=== PATIENT | male | born 1960 | race Caucasian/White ===

== ENCOUNTER 2020-03-19 08:20 | Outpatient (REF) | payer OTHER, SELFPAY | END 2020-03-19 08:21 | disposition home or self-care (01) | LOC: HO.LAB 08:20 | PROVIDERS: Visit Provider Physician Assistant | DX: Z13.89 Encounter for screening for other disorder (principal) ==

== ENCOUNTER 2020-03-21 07:32 | Outpatient (REF) | payer OTHER, SELFPAY ==
[2020-03-21 08:36] LABS: Estimated Average Glucose 126 mg/dL
[2020-03-21 09:07] LABS: Alanine Aminotransferase 30 U/L (0-40); Albumin Level 4.3 g/dL (3.5-5.0); Alkaline Phosphatase 50 U/L (39-117); Anion Gap 11 (12-20); Aspartate Amino Transferase 19 U/L (5-37); Bilirubin Total 0.9 mg/dL (0.0-1.0); Blood Urea Nitrogen 24 mg/dL (9-16); Calcium 8.8 mg/dL (8.4-10.2); Carbon Dioxide 30 mmol/L (22-29); Chloride 105 mmol/L (96-108); Cholesterol 148 mg/dL; Estimated Glomerular Filt Rate > 60; Glucose Fasting 130 mg/dL (60-99); HDL Cholesterol 55 mg/dL; LDL Cholesterol Calculated 75 mg/dl; Potassium 4.5 mmol/l (3.3-5.1); Sodium 141 mmol/L (135-145); Total Protein 6.9 g/dL (6.5-8.0); Triglycerides 91 mg/dL
[2020-03-21 09:28] LABS: Prostate Specific Antigen Scr 1.54 ng/mL (<0.05-4.0)
== END 2020-03-21 07:33 | disposition home or self-care (01) ==
LOC: HO.LAB 07:32
PROVIDERS: PCP Physician Assistant; Visit Provider Physician Assistant
DX: E78.5 Hyperlipidemia, unspecified (principal); R73.09 Other abnormal glucose; Z12.5 Encounter for screening for malignant neoplasm of prostate
CPT/HCPCS: 80053; 80061; 83036; 84153

== ENCOUNTER → 2020-04-16 13:50 | Outpatient (BNVA) | payer OTHER, SELFPAY | PROVIDERS: PCP Physician Assistant; Visit Provider Physician Assistant | DX: Z12.11 Encounter for screening for malignant neoplasm of colon (principal) | CPT/HCPCS: Q3014 ==

== ENCOUNTER 2020-05-29 07:21 | Day surgery (SDC) | payer OTHER, SELFPAY ==
[2020-05-22 20:36] VITALS: BMI 29.0
--- NOTE | 2020-05-28 09:20 | HO.ANESPROP2 ---
Documented by User: Jaja Velasco 05/28/20 09:21 HPI - Anesthesia Eval Consult details Narrative: 59yo M for Colonoscopy [facility] Active Problems Active Problems: All Active Problems (Updated 05/22/20 @ 20:35 by Rachel Powers RN) Impaired glucose metabolism (Acute) Hyperlipidemia (Acute) Family history of colon cancer (Acute) Encounter for screening colonoscopy (Acute) Past Medical History Medical History Arthritis Elevated cholesterol Hydrocele Impaired glucose metabolism Neck pain Tubular adenoma of colon Family History Family History Father No problems noted. Mother Hypertension Brother In good health Son In good health Daughter In good health Surgical History Surgical History H/O arthroscopic knee surgery History of colonoscopy History of tonsillectomy No pertinent past surgical history Social History Social History Smoking Status: Never smoker Second Hand Smoke Exposure: No Use of substances other than those prescribed or required for medical reasons: No Advance Directives: No Advance Directives Information Provided: No Advance Directives on File: No Recently lost weight without trying: No Meds Allergies Allergy/AdvReac Type Severity Reaction Status Date / Time No Known Allergies Allergy Verified 05/23/20 10:10 Exam Exam Date and Time: May 28, 2020 0920 Height,Weight and Vital Signs: Height 5 ft 7 in Weight 83.915 kg Assessment and Plan Assessment Anesthesia Assessment: Chart Reviewed Documented by User: Reyna Rivers 05/29/20 09:09 [facility] Past Medical History Medical History Arthritis Elevated cholesterol Hydrocele Impaired glucose metabolism Neck pain Tubular adenoma of colon Family History Family History Father No problems noted. Mother Hypertension Brother In good health Son In good health Daughter In good health Surgical History Surgical History H/O arthroscopic knee surgery History of colonoscopy History of tonsillectomy No pertinent past surgical history Social History Social History Smoking Status: Never smoker Second Hand Smoke Exposure: No Use of substances other than those prescribed or required for medical reasons: No Advance Directives: No Advance Directives Information Provided: No Advance Directives on File: No Recently lost weight without trying: No Meds Allergies Allergy/AdvReac Type Severity Reaction Status Date / Time No Known Allergies Allergy Verified 05/23/20 10:10 Exam Airway Mallampati Class: I TM Dist: >3cm Neck ROM: Full Heart: RRR Lungs: CTA
[2020-05-29 08:04] VITALS: BP 162/96; PULSE 73; RESP 16; TEMP 36.8
[2020-05-29 08:16] LABS: Glucose, Whole Blood 110 mg/dL (60-115)
[2020-05-29] MEDS: Lactated Ringers 1,000 ML 100 ML IVCONT (08:29)
--- NOTE | 2020-05-29 08:45 | MHC.SHP ---
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 5 YEARS AGO) Allergies: Allergies Allergy/AdvReac Type Severity Reaction Status Date / Time No Known Allergies Allergy Verified 05/23/20 10:10 Review of Systems Sugical H&P ROS: Negative: Constitution, Cardiovascular, Neurological, Gastrointestinal and Musculoskeletal and Yes, Specify: Endocrine (ON METFORMIN) Exam Surgical H&P Exam: Normal: HEENT, Normal: Heart, Normal: Lungs, Normal: Extremities, Normal: Abdomen and Normal: Skin Plan Diagnosis/Plan: Unchanged I have reviewed the history and physical and performed a pertinent physical examination on my patient. No changes have occurred unless specified.YES
[2020-05-29 09:41] VITALS: BP 105/65; PULSE 68; RESP 16; TEMP 36.8; O2SAT 96
--- NOTE | 2020-05-29 09:49 | HO.POSTANES ---
Post Anesthesia Evaluation Post Anesthesia Evaluation Vital Signs: Vital Signs Temp Pulse Resp BP Pulse Ox 05/29/20 09:41 98.3 F 68 16 105/65 96 05/29/20 08:04 98.3 F 73 16 162/96 H Anesthesia: Monitored Mental Status: Awake Pain Control: Satisfactory Nausea/Vomiting: None Hydration: Adequate Anesthesia-Related Issues: No Anes. Related Issues
[2020-05-29 09:55] VITALS: BP 139/82; PULSE 67; RESP 16; O2SAT 97
--- NOTE | 2020-05-29 09:58 | PM.OP ---
Brief Operative Note Date of Service: 05/29/20 Pre-op diagnosis: Personal hx of tubular adenoma, Family hx of colon cancer Post-op diagnosis: other (Colonic polyps, as above) Procedure: Colonoscopy with excisional polypectomy x2 Implants: no Surgeon: Marcelina Manning MD Anesthesia: MAC (MD Alex) Estimated blood loss (mL): 10 Pathology: other (cecal polyp, rectal polyp) Condition: stable Disposition: PACU
--- NOTE | 2020-05-29 10:03 | W.PM.OPN ---
Operative Note Operative Note Date of Service: 05/29/20 Narrative: Date of Service: 05/29/20 Pre-op diagnosis: Personal hx of tubular adenoma, Family hx of colon cancer Post-op diagnosis: other (Colonic polyps, as above) Procedure: Colonoscopy with excisional polypectomy x2 Implants: no Surgeon: Marcelina Manning MD Anesthesia: MAC (MD Alex) FINDINGS: SHON normal prostate scope easily advanced through Sigmoid, descending, transverse colon. Continued movement in to asecending colon down into the cecum--Diminutive Polyp removed in cecum. At one point a good retroflex view of the ascending colon was achieved. (Mucosa was clear.) Prep good Slow rotational views on withdrawing scope a second polyp was removed in the rectum. ARV was clear. Estimated blood loss (mL): 10 Pathology: other (cecal polyp, rectal polyp) Condition: stable Disposition: PAC PATHOLOGY: CECAL TUBULAR ADENOMA, RECTAL POLYP WAS HYPERPLASTIC. PLAN: REPEAT HIGH RISK SCREENING WILL CONTINUE @ 5 YEAR INTERVAL.
--- NOTE | 2020-05-29 12:00 | HO.POSTANES ---
Post Anesthesia Evaluation Post Anesthesia Evaluation Vital Signs: Vital Signs Temp Pulse Resp BP Pulse Ox 05/29/20 09:55 67 16 139/82 97 05/29/20 09:41 98.3 F 68 16 105/65 96 05/29/20 08:04 98.3 F 73 16 162/96 H Anesthesia: Monitored Mental Status: Awake Pain Control: Satisfactory Nausea/Vomiting: None Hydration: Adequate Anesthesia-Related Issues: No Anes. Related Issues
== END 2020-05-29 10:26 | disposition home or self-care (01) ==
PROVIDERS: PCP Physician Assistant; Visit Provider Internal Medicine Gastroenterology
PROC: 0DJD8ZZ Inspection of Lower Intestinal Tract, Via Natural or Artificial Opening Endoscopic (ICD-10-PCS; CPT 45378; principal; 2020-05-29 08:30)
DX: Z12.11 Encounter for screening for malignant neoplasm of colon (principal); Z86.010 Personal history of colon polyps; D12.0 Benign neoplasm of cecum; K62.1 Rectal polyp; K57.30 Diverticulosis of large intestine without perforation or abscess without bleeding; Z80.0 Family history of malignant neoplasm of digestive organs; R73.02 Impaired glucose tolerance (oral); Z79.84 Long term (current) use of oral hypoglycemic drugs
CPT/HCPCS: 45380; 82947; 88305

== ENCOUNTER → 2020-06-05 13:59 | Outpatient (BNVA) | payer OTHER, SELFPAY | PROVIDERS: PCP Physician Assistant; Visit Provider Physician Assistant | DX: D12.6 Benign neoplasm of colon, unspecified (principal) | CPT/HCPCS: Q3014 ==

== ENCOUNTER 2020-09-16 07:57 | Outpatient (REF) | payer OTHER, SELFPAY ==
[2020-09-16 09:23] LABS: Estimated Average Glucose 123 mg/dL; Hemoglobin A1c % 5.9 %
[2020-09-16 09:28] LABS: Alanine Aminotransferase 22 U/L (0-40); Albumin Level 4.2 g/dL (3.5-5.0); Alkaline Phosphatase 46 U/L (39-117); Anion Gap 11 (12-20); Aspartate Amino Transferase 19 U/L (5-37); Blood Urea Nitrogen 25 mg/dL (9-16); Calcium 9.5 mg/dL (8.4-10.2); Carbon Dioxide 29 mmol/L (22-29); Chloride 106 mmol/L (96-108); Cholesterol 137 mg/dL; Estimated Glomerular Filt Rate > 60; Glucose Fasting 122 mg/dL (60-99); HDL Cholesterol 51 mg/dL; LDL Cholesterol Calculated 70 mg/dl; Potassium 4.8 mmol/L (3.3-5.1); Sodium 141 mmol/L (135-145); Total Protein 6.5 g/dL (6.5-8.0); Triglycerides 83 mg/dL
[2020-09-16 09:50] LABS: Prostate Specific Antigen Scr 1.28 ng/mL (<0.05-4.0)
== END 2020-09-16 07:58 | disposition home or self-care (01) ==
LOC: HO.LAB 07:57
PROVIDERS: PCP Physician Assistant; Visit Provider Physician Assistant
DX: Z12.5 Encounter for screening for malignant neoplasm of prostate (principal); E78.5 Hyperlipidemia, unspecified; R73.09 Other abnormal glucose; Z80.0 Family history of malignant neoplasm of digestive organs
CPT/HCPCS: 36415; 80053; 80061; 83036; 84153

== ENCOUNTER → 2020-11-06 10:04 | Outpatient (REF) | payer OTHER, SELFPAY | LOC: HO.SL 10:04 | PROVIDERS: PCP Physician Assistant; Visit Provider Physician Assistant | DX: R06.81 Apnea, not elsewhere classified (principal) | CPT/HCPCS: 95806 ==

== ENCOUNTER 2021-04-27 09:24 | Outpatient (REF) | payer OTHER, SELFPAY ==
[2021-04-27 10:02] LABS: Hematocrit 46.3 % (42.0-52.0); Hemoglobin 15.7 g/dl (14.0-18.0); Mean Corpuscular HGB Conc 33.9 g/dl (31.0-36.0); Mean Corpuscular Hemoglobin 32.4 pg (27.0-33.0); Mean Corpuscular Volume 95.7 fL (80.0-98.0); Mean Platelet Volume 9.8 fL (9.4-12.4); Platelet Count 207 X10*3/uL (160-400); Red Blood Count 4.84 X10*6/uL (4.60-5.80); Red Cell Distribution Width 12.3 % (11.0-16.0); White Blood Count 6.4 X10*3/uL (4.8-10.8)
[2021-04-27 10:09] LABS: Estimated Average Glucose 134 mg/dL; Hemoglobin A1c % 6.3 %
[2021-04-27 10:37] LABS: Alanine Aminotransferase 33 U/L (0-40); Albumin Level 4.3 g/dL (3.5-5.0); Alkaline Phosphatase 45 U/L (39-117); Anion Gap 12 (12-20); Aspartate Amino Transferase 20 U/L (5-37); Bilirubin Total 1.1 mg/dL (0.0-1.0); Blood Urea Nitrogen 27 mg/dL (9-16); Calcium 9.8 mg/dL (8.4-10.2); Carbon Dioxide 30 mmol/L (22-29); Chloride 106 mmol/L (96-108); Cholesterol 148 mg/dL; Estimated Glomerular Filt Rate > 60; Glucose Fasting 122 mg/dL (60-99); HDL Cholesterol 52 mg/dL; LDL Cholesterol Calculated 79 mg/dl; Potassium 5.1 mmol/L (3.3-5.1); Sodium 143 mmol/L (135-145); Total Protein 6.9 g/dL (6.5-8.0); Triglycerides 87 mg/dL
[2021-04-27 10:48] LABS: TSH reflex Free T4 0.83 uIU/mL (0.32-4.0)
== END 2021-04-27 09:25 | disposition home or self-care (01) ==
LOC: HO.LAB 09:24
PROVIDERS: PCP Physician Assistant; Visit Provider Physician Assistant
DX: R73.09 Other abnormal glucose (principal); E78.2 Mixed hyperlipidemia; I10 Essential (primary) hypertension
CPT/HCPCS: 36415; 80053; 80061; 83036; 84443; 85027

== ENCOUNTER 2021-10-22 09:21 | Outpatient (REF) | payer MEDICARE, SELFPAY ==
[2021-10-22 09:57] LABS: Hematocrit 45.5 % (42.0-52.0); Hemoglobin 15.4 g/dl (14.0-18.0); Mean Corpuscular HGB Conc 33.8 g/dl (31.0-36.0); Mean Corpuscular Volume 94.6 fL (80.0-98.0); Mean Platelet Volume 10.1 fL (9.4-12.4); Platelet Count 208 X10*3/uL (160-400); Red Blood Count 4.81 X10*6/uL (4.60-5.80); Red Cell Distribution Width 12.1 % (11.0-16.0); White Blood Count 5.9 X10*3/uL (4.8-10.8)
[2021-10-22 10:04] LABS: Estimated Average Glucose 123 mg/dL; Hemoglobin A1c % 5.9 %
[2021-10-22 10:33] LABS: Alanine Aminotransferase 25 U/L (0-40); Albumin Level 4.2 g/dL (3.5-5.0); Alkaline Phosphatase 47 U/L (39-117); Anion Gap 11 (12-20); Aspartate Amino Transferase 19 U/L (5-37); Bilirubin Total 1.1 mg/dL (0.0-1.0); Blood Urea Nitrogen 21 mg/dL (9-16); Calcium 9.1 mg/dL (8.4-10.2); Carbon Dioxide 29 mmol/L (22-29); Chloride 106 mmol/L (96-108); Cholesterol 162 mg/dL; Estimated Glomerular Filt Rate > 60; Glucose Fasting 122 mg/dL (60-99); HDL Cholesterol 53 mg/dL; LDL Cholesterol Calculated 93 mg/dl; Sodium 141 mmol/L (135-145); Total Protein 6.7 g/dL (6.5-8.0); Triglycerides 83 mg/dL
[2021-10-22 10:56] LABS: Prostate Specific Antigen Scr 1.35 ng/mL (<0.05-4.0); TSH reflex Free T4 1.08 uIU/mL (0.32-4.0)
== END 2021-10-22 09:22 | disposition home or self-care (01) ==
LOC: HO.LAB 09:21
PROVIDERS: PCP Physician Assistant; Visit Provider Physician Assistant
DX: Z12.5 Encounter for screening for malignant neoplasm of prostate (principal); R73.09 Other abnormal glucose; E78.2 Mixed hyperlipidemia
CPT/HCPCS: 36415; 80053; 80061; 83036; 84153; 84443; 85027

== ENCOUNTER 2022-02-04 11:37 | Outpatient (REF) | payer MEDICARE, SELFPAY ==
--- NOTE | 2022-02-04 09:45 | EMG_ITS ---
Left median and ulnar motor and sensory studies were performed. Left radial sensory study was performed, and paraspinal muscles were tested with a needle. IMPRESSION: 1. [id number] left ulnar neuropathy across cubital tunnel. 2. No evidence of median neuropathy or radiculopathy. MD GALINA Massey/ALETA / [id number]
== END 2022-02-04 11:38 | disposition home or self-care (01) ==
LOC: HO.NEURO 11:37
PROVIDERS: PCP Physician Assistant; Visit Provider Physician Assistant
DX: R20.2 Paresthesia of skin (principal)
CPT/HCPCS: 95886; 95909

== ENCOUNTER 2022-04-20 07:21 | Outpatient (REF) | payer MEDICARE, SELFPAY ==
[2022-04-20 07:41] LABS: Hematocrit 44.4 % (42.0-52.0); Hemoglobin 15.2 g/dl (14.0-18.0); Mean Corpuscular HGB Conc 34.2 g/dl (31.0-36.0); Mean Corpuscular Hemoglobin 32.5 pg (27.0-33.0); Mean Corpuscular Volume 94.9 fL (80.0-98.0); Mean Platelet Volume 9.7 fL (9.4-12.4); Platelet Count 218 X10*3/uL (160-400); Red Blood Count 4.68 X10*6/uL (4.60-5.80); Red Cell Distribution Width 11.7 % (11.0-16.0); White Blood Count 6.5 X10*3/uL (4.8-10.8)
[2022-04-20 08:35] LABS: Alanine Aminotransferase 28 U/L (0-40); Albumin Level 4.1 g/dL (3.5-5.0); Alkaline Phosphatase 45 U/L (39-117); Anion Gap 12 (12-20); Aspartate Amino Transferase 21 U/L (5-37); Bilirubin Total 1.2 mg/dL (0.0-1.0); Blood Urea Nitrogen 21 mg/dL (9-16); Carbon Dioxide 27 mmol/L (22-29); Chloride 104 mmol/L (96-108); Cholesterol 143 mg/dL; Estimated Glomerular Filt Rate > 60; Glucose Fasting 120 mg/dL (60-99); HDL Cholesterol 50 mg/dL; LDL Cholesterol Calculated 76 mg/dl; Potassium 4.5 mmol/L (3.3-5.1); Sodium 138 mmol/L (135-145); Total Protein 6.7 g/dL (6.5-8.0); Triglycerides 88 mg/dL
[2022-04-20 08:41] LABS: Estimated Average Glucose 128 mg/dL; Hemoglobin A1c % 6.1 %
[2022-04-20 08:52] LABS: TSH reflex Free T4 1.14 uIU/mL (0.32-4.0)
== END 2022-04-20 07:22 | disposition home or self-care (01) ==
LOC: HO.LAB 07:21
PROVIDERS: PCP Physician Assistant; Visit Provider Physician Assistant
DX: R73.09 Other abnormal glucose (principal); E78.2 Mixed hyperlipidemia; Z13.29 Encounter for screening for other suspected endocrine disorder
CPT/HCPCS: 36415; 80053; 80061; 83036; 84443; 85027

== ENCOUNTER 2022-12-10 08:33 | Outpatient (REF) | payer MEDICARE, SELFPAY ==
[2022-12-10 09:43] LABS: Hematocrit 43.2 % (42.0-52.0); Hemoglobin 14.8 g/dl (14.0-18.0); Mean Corpuscular HGB Conc 34.3 g/dl (31.0-36.0); Mean Corpuscular Hemoglobin 31.8 pg (27.0-33.0); Mean Corpuscular Volume 92.9 fL (80.0-98.0); Mean Platelet Volume 10.2 fL (9.4-12.4); Platelet Count 221 X10*3/uL (160-400); Red Blood Count 4.65 X10*6/uL (4.60-5.80); Red Cell Distribution Width 12.5 % (11.0-16.0); White Blood Count 6.9 X10*3/uL (4.8-10.8)
[2022-12-10 09:47] LABS: Estimated Average Glucose 114 mg/dL; Hemoglobin A1C 148.4884 umol/L; Hemoglobin A1c % 5.6 % (<6.0)
[2022-12-10 10:23] LABS: Alanine Aminotransferase 27 U/L (0-40); Albumin Level 4.2 g/dL (3.5-5.0); Alkaline Phosphatase 45 U/L (39-117); Anion Gap 11 (12-20); Aspartate Amino Transferase 20 U/L (5-37); Bilirubin Total 0.9 mg/dL (0.0-1.0); Blood Urea Nitrogen 22 mg/dL (9-16); Calcium 9.2 mg/dL (8.4-10.2); Carbon Dioxide 27 mmol/L (22-29); Chloride 108 mmol/L (96-108); Cholesterol 152 mg/dL (<200); Estimated Glomerular Filt Rate > 60; Glucose Fasting 114 mg/dL (60-99); HDL Cholesterol 58 mg/dL (>40); LDL Cholesterol Calculated 78 mg/dL (<100); Potassium 4.6 mmol/L (3.3-5.1); Sodium 141 mmol/L (135-145); Total Protein 6.8 g/dL (6.5-8.0); Triglycerides 84 mg/dL (<150)
[2022-12-10 10:31] LABS: Creatinine Urine 160.53 mg/dL; Microalbum/Creatinine Ratio Ur 4.3 ug/mg cr (<30)
== END 2022-12-10 08:34 | disposition home or self-care (01) ==
LOC: HO.LAB 08:33
PROVIDERS: PCP Physician Assistant; Visit Provider Physician Assistant
DX: I10 Essential (primary) hypertension (principal); R73.09 Other abnormal glucose; E78.2 Mixed hyperlipidemia
CPT/HCPCS: 36415; 80053; 80061; 82043; 82570; 83036; 85027

== ENCOUNTER 2022-12-15 10:51 | Outpatient (AMB) | payer MEDICARE, SELFPAY ==
--- NOTE | 2022-12-15 10:56 | A.OFFPC_ITS ---
Vital Signs 12/15/22 10:58 Height 5 ft 7 in Weight 186 lb 6 oz BMI 29.2 BP 120/70 Blood Pressure Location Lt brachial Position Sitting Pulse 66 Pulse Source Pulse Oximeter Pulse Oximetry (%) 97 Oxygen Delivery Method Room Air Intake Visit Reasons: 6M. F/U-HLD, IGM Intake Note: Patient is here to follow up on HLD, IGM. 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 per policy Accompanied by: Self / Same As Patient Allergies valsartan Adverse Reaction (Intermediate, Verified 12/15/22 11:15) throat issue Medication List - Last Reconciled 12/15/22 by Kalpesh Browning PA-C amlodipine 10 mg PO DAILY 90 days atorvastatin 20 mg PO DAILY 90 days fluticasone propionate 50 mcg/actuation (Flonase Allergy Relief) 1 spray intranasal DAILY metformin ER 500 mg PO DAILY Tobacco use date assessed: 12/15/22 Dental Screening Dental Screen Date: 12/15/22 Did you have a dental visit in the last 12 months?: Yes Did you have a dental problem in the last 6 months where you did not have access to dental care?: No Was dental information given to patient?: Patient has dentist HPI 6M. F/U-HLD, IGM HPI Details Osmin is a 62-year-old male here today for follow-up visit ?Patient has a past medical history significant for diabetes, cervical radiculopathy hyperlipidemia, depression. /. Hypertension: Continues on amlodipine 10 mg He reports at home getting normal readings at times. otherwise is reluctant to start blood pressure medication and denies any symptoms of headaches, dizziness, chest discomfort. .. Hyperlipidemia: Continues on statin therapy, does report some muscle aches though the attributes this to a just well. Most recent lipid panel showing excellent control over his total cholesterol and LDL. ? .. ?Impaired glucose metabolism: was recent A1c much improved at 5.6. On metformin 500mg. Continues to decrease his carbs in his diet. Has been much more physically active and has lost a few lb since last office visit ? .. ? Cervical radiculopathy-> :? Continues to have intermittent neck pains which has caused him be on disability. ? He was followed by [facility] and received injections which helped in the past.. Reports he still has mild pain and numbness in his left upper extremity. Has not been taking gabapentin. ? HAs done a MRI- cervical showing hernia disc. [facility] Medical History (Updated 12/15/22 @ 11:26 by Kalpesh Browning PA-C) Allergic rhinitis Family history of colon cancer Essential hypertension Neck pain Arthritis Elevated cholesterol Hydrocele Tubular adenoma of colon Impaired glucose metabolism Surgical History History of colonoscopy History of tonsillectomy H/O arthroscopic knee surgery No pertinent past surgical history Family History Father No problems noted. Mother Hypertension Brother In good health Colon cancer Son In good health Mental health disorder Substance use disorder Daughter In good health Social History Household Members: Significant Other Housing: House Alcohol intake: current Alcohol intake frequency: a few times a week Alcohol type: hard liquor Patient Tobacco Use Status: Never used Tobacco e-Cigarette/Vaping Use: Never Used Second Hand Smoke Exposure: No service: No Current occupational status: disabled Cognitive needs: No Hearing needs: No Vision needs: Yes (glasses) Questionnaire Thrive Questionnaire Date Thrive assessed: 04/29/22 PAIGE-7 AMB Questionnaire PAIGE-7 Date PAIGE - 7 assessed: 04/29/22 Source: Developed by Drs. Elliot Warren, Sujey Lay, Rigo Marie and colleagues, with an educational danay from [employer]. Review of Systems Const Denies headache(s) Eyes Denies loss of vision ENT Denies vertigo, Denies dizziness, Denies headache(s) and Denies sore throat Card Denies chest pain, Denies leg edema and Denies lightheadedness Resp Denies cough, Denies hemoptysis and Denies wheezing GI Denies abdominal pain, Denies melena, Denies constipation, Denies diarrhea and Denies vomiting Denies dysuria, Denies urinary frequency and Denies urinary urgency Musc Denies arthralgias, Denies joint swelling, Denies numbness and Denies tingling Neuro Denies Abnormal speech present, Denies behavioral changes, Denies vertigo, Denies dizziness, Denies headache(s), Denies loss of vision, Denies memory loss, Denies numbness and Denies tingling Psych Denies anxiety, Denies behavioral changes, Denies depression, Denies memory loss and Denies panic attacks Wisam/Lymph Denies easy bleeding and Denies easy bruising Aller/Immun Denies wheezing Physical exam (Primary Care) Vital Signs: Last Vital Signs Pulse 66 12/15/22 10:58 BP 120/70 12/15/22 10:58 Pulse Ox 97 12/15/22 10:58 Oxygen Delivery Method Room Air 12/15/22 10:58 BMI result Body Mass Index 29.2 Tobacco/Smoking Status: Tobacco use Status Tobacco use date assessed 12/15/22 12/15/22 11:03 Patient Tobacco Use Status Never used Tobacco 12/15/22 11:03 e-Cigarette/Vaping Use Never Used 12/15/22 11:03 Thrive Assessment: Date of Thrive Assessment Date Thrive assessed 04/29/22 12/15/22 11:03 Const General: healthy appearing, no acute distress, alert and awake Nutritional Appearance: well nourished Orientation/consciousness: oriented to person, oriented to place and oriented to time HENMT Ears: TM's normal bilaterally General nose exam: Normal nasal mucous membranes and turbinates present Eyes Conjunctivae: conjunctivae normal Sclerae: sclerae normal Pupils: Equal, round and reactive pupils present Neck Neck: Yes no lymphadenopathy and Yes no JVD Thyroid: Thyroid normal Carotids: no bruits Resp Effort & Inspection: normal respiratory effort and not tachypneic Auscultation: no crackles, no rales, no rhonchi and no wheezes Cardio Rate: regular rate Rhythm: regular rhythm Heart sounds: no murmurs and normal S1 and S2 GI Palpation (GI): Soft to palpation, nontender, no hepatomegaly and no splenomegaly Auscultation: normal bowel sounds Skin General skin exam: no rashes or lesions noted and dry skin Neuro General: oriented to person, oriented to place and oriented to time Cranial nerves: Yes Equal, round and reactive pupils present Speech: No Abnormal speech present Gait exam (Neuro): Normal gait present Motor exam (neuro): no tremor noted Extrem Right upper extremity: full ROM Left upper extremity: full ROM Right lower extremity: full ROM; no edema Left lower extremity: full ROM; no edema Psych Mental Status: mental status grossly normal Speech and movement: Normal speech and movement present Affect: normal affect Attitude: cooperative Thought process: Normal thought process present Assessment and Plan Assessment & Plan (1) Essential hypertension: Code(s): I10 - Essential (primary) hypertension Plan: Patient's blood pressure acceptable today in office. Will continue amlodipine 10 mg with goal blood pressure to be below 140/90 (2) Hyperlipidemia: Code(s): E78.5 - Hyperlipidemia, unspecified Qualifiers: Hyperlipidemia type: mixed hyperlipidemia Qualified Code(s): E78.2 - Mixed hyperlipidemia Plan: Patient's most recent lipid panel showing excellent control his total cholesterol and LDL. Will continue atorvastatin 20 mg at this time. Goal LDL is to remain below 130. (3) Impaired glucose metabolism: Comment: On metformin Code(s): R73.09 - Other abnormal glucose Plan: Continues on metformin 500 ER. Has been working on lifestyle modifications and being more physically active and has been able to reduce his A1c significantly. Most recent fasting blood sugar at 117.. Will consider disc continuing metformin at next visit Orders: Orders Comprehensive [place]. Panel Fast 6 Months I10 - Essential (primary) hypertension Lipid Panel Today E78.2 - Mixed hyperlipidemia Prostate Specific Antigen Scr Today E78.2 - Mixed hyperlipidemia, Z12.5 - Encounter for screening for malignant neoplasm of prostate Microalbumin, Random (w Creat) Today I10 - Essential (primary) hypertension Hemoglobin A1c Today R73.09 - Other abnormal glucose Coding Level of Care Code Est Pt Level 4 (36547) Diagnoses Essential hypertension I10 Mixed hyperlipidemia E78.2 Hyperlipidemia type: mixed hyperlipidemia Impaired glucose metabolism R73.09
[2022-12-15 10:58] VITALS: BP 120/70; PULSE 66; O2SAT 97; BMI 29.2
== END 2022-12-15 11:23 | disposition home or self-care (01) ==
PROVIDERS: PCP Physician Assistant; Visit Provider Physician Assistant
DX: I10 Essential (primary) hypertension (principal); E78.2 Mixed hyperlipidemia; R73.09 Other abnormal glucose
CPT/HCPCS: 99214

== ENCOUNTER 2023-04-27 06:20 | Outpatient (REF) | payer MEDICARE, SELFPAY ==
[2023-04-27 08:24] LABS: Cholesterol 152 mg/dL (<200); HDL Cholesterol 56 mg/dL (>40); LDL Cholesterol Calculated 80 mg/dL (<100); Triglycerides 84 mg/dL (<150)
[2023-04-27 08:29] LABS: Estimated Average Glucose 126 mg/dL
[2023-04-27 08:30] LABS: Creatinine Urine 58.95 mg/dL; Microalbumin Urine < 5.0 mg/L
[2023-04-27 08:49] LABS: Prostate Specific Antigen Scr 1.67 ng/mL (<0.05-4.0)
== END 2023-04-27 06:21 | disposition home or self-care (01) ==
LOC: HO.LAB 06:20
PROVIDERS: PCP Physician Assistant; Visit Provider Physician Assistant
DX: E78.2 Mixed hyperlipidemia (principal); I10 Essential (primary) hypertension; R73.09 Other abnormal glucose; Z12.5 Encounter for screening for malignant neoplasm of prostate
CPT/HCPCS: 36415; 80061; 82043; 82570; 83036; 84153

== ENCOUNTER 2023-05-03 13:20 | Outpatient (AMB) | payer MEDICARE, SELFPAY ==
[2023-05-03 13:30] VITALS: BP 132/80; PULSE 70; O2SAT 97; BMI 30.1
--- NOTE | 2023-05-03 13:30 | MHC.PC.OV ---
Vital Signs 05/03/23 13:30 Height 5 ft 7 in Weight 192 lb 2 oz BMI 30.1 BP 132/80 Blood Pressure Location Lt brachial Position Sitting Pulse 70 Pulse Source Pulse Oximeter Pulse Oximetry (%) 97 Oxygen Delivery Method Room Air Intake Visit Reasons: Annual Exam Intake Note: Patient is here today for a physical. Ranger Aide Required: No Accompanied by: Self / Same As Patient Allergies valsartan Adverse Reaction (Intermediate, Verified 05/03/23 13:37) throat issue Medication List - Last Reconciled 05/03/23 by Kalpesh Browning PA-C amlodipine 10 mg PO DAILY 90 days atorvastatin 20 mg PO DAILY 90 days fluticasone propionate 50 mcg/actuation (Flonase Allergy Relief) 1 spray intranasal DAILY metformin ER 500 mg PO DAILY Tobacco use date assessed: 05/03/23 Dental Screening Dental Screen Date: 05/03/23 Did you have a dental visit in the last 12 months?: Yes Did you have a dental problem in the last 6 months where you did not have access to dental care?: No Was dental information given to patient?: Patient has dentist HPI Annual Exam HPI Details Osmin is a 62-year-old male here today for a routine annual physical ?Patient has a past medical history significant for diabetes, cervical radiculopathy hyperlipidemia, depression. /. Hypertension: Continues on amlodipine 10 mg blood pressure today in office acceptable. .. Hyperlipidemia: Continues on statin therapy, does report some muscle aches though the attributes this to a just well. Most recent lipid panel showing excellent control over his total cholesterol and LDL. ? .. ?Impaired glucose metabolism: was recent A1c at 6.0 in prediabetic range.. On metformin 500mg. Continues to decrease his carbs in his diet. He plans to be more physically active ? .. ?? ? Chronic? Cervical radiculopathy-> :? Continues to have intermittent neck pains which has caused him be on disability. ? He was followed by [facility] and received injections which helped in the past.. Reports he still has mild pain and numbness in his left upper extremity. Has not been taking gabapentin. ? HAs done a MRI- cervical showing hernia disc. Colonoscopy: Done in 2020 repeat 5 years tubular adenomatous polyp Vaccines: Up-to-date with tetanus, Unvaccinated for COVID. declines flu and shingrex. Laboratory Tests 12/10/22 04/27/23 04/27/23 08:56 06:30 06:30 Hemoglobin A1c % 5.6 6.0 Cholesterol 152 LDL Cholesterol, C alc 80 PSA Screen 1.67 [facility] Medical History Allergic rhinitis Family history of colon cancer Essential hypertension Neck pain Arthritis Elevated cholesterol Hydrocele Tubular adenoma of colon Impaired glucose metabolism Surgical History History of colonoscopy History of tonsillectomy H/O arthroscopic knee surgery No pertinent past surgical history Family History Father No problems noted. Mother Hypertension Brother In good health Colon cancer Son In good health Mental health disorder Substance use disorder Daughter In good health Social History (Updated 05/03/23 @ 13:41 by Kalpesh Browning PA-C) Household Members: Significant Other Housing: House Alcohol intake: current Alcohol intake frequency: a few times a week Alcohol type: hard liquor Patient Tobacco Use Status: Never used Tobacco e-Cigarette/Vaping Use: Never Used Second Hand Smoke Exposure: No service: No Current occupational status: disabled Cognitive needs: No Hearing needs: No Vision needs: Yes (glasses) Questionnaire PHQ-9 Over the last 2 weeks, how often have you been bothered by any of the following problems? 1. Little interest or pleasure in doing things: not at all 2. Feeling down, depressed, or hopeless: not at all 3. Trouble falling or staying asleep, or sleeping too much: not at all 4. Feeling tired or having little energy: not at all 5. Poor appetite or overeating: not at all 6. Feeling bad about yourself - or that you are a failure or have let yourself or your family down: not at all 7. Trouble concentrating on things, such as reading the newspaper or watching television: not at all 8. Moving or speaking so slowly that other people could have noticed. Or the opposite - being so fidgety or restless that you have been moving around a lot more than usual: not at all 9. Thoughts that you would be better off or of hurting yourself in some way: not at all Total score: 0 Depression Screening Interpretation: Negative Depression Screening Done: Yes 05425 - PHQ-9 Billing: Yes Source: Developed by Drs. Elliot Warren, Sujey Lay, Rigo Marie and colleagues, with an educational danay from [employer]. Thrive Questionnaire Date Thrive assessed: 05/03/23 I am a: Patient What is your living situation today?: I have a steady place to live Within the past 12 months, did the food you bought not last and you didn't have the money to get more?: Never true Within the past 12 months, did you worry whether your food would run out before you got money to buy more?: Never true Do you have trouble paying for medicines?: No Do you have trouble getting transportation to medical appointments?: No Do you have trouble paying your heating and electricity bill?: No Do you have trouble taking care of your child, family member or friend?: No Do you have trouble with day-to-day activities such as bathing, preparing meals, shopping, managing finances, etc.?: No Are you currently unemployed and looking for a job?: No Are you interested in more education?: No Please select the resources that you would like help with: None Currently or been in a relationship where the following occur: no concerns reported THRIVE Score: 0 AUDIT C Alcohol Use Questionnaire (AUDIT-C) 1. How often do you have a drink containing alcohol?: 2-3 times a week 2. How many drinks containing alcohol do you have on a typical day when you are drinking?: 3 or 4 3. How often do you have six or more drinks on one occasion?: Never Total Score: 4 PAIGE-7 AMB Questionnaire PAIGE-7 Date PAIGE - 7 assessed: 05/03/23 Feeling nervous, anxious, or on edge: 0 = Not at all Not being able to stop or control worryin = Not at all Worrying too much about different things: 0 = Not at all Trouble relaxin = Not at all Being so restless that it is hard to sit still: 0 = Not at all Becoming easily annoyed or irritable: 0 = Not at all Feeling afraid as if something awful might happen: 0 = Not at all Total PAIGE-7 score (0-4 normal; 5-9 mild; 10-14 moderate; 15-21 severe): 0 Source: Developed by Drs. Elliot Warren, Sujey Lay, Rigo Marie and colleagues, with an educational danay from [employer]. PAIGE-7 Assessment Billing PAIGE-7 Assessment Tool: PAIGE-7 Assessment [id number] Review of Systems Const Denies body aches, Denies chills, Denies excessive sweating, Denies fatigue, Denies fever(s) and Denies headache(s) Eyes Denies blurry vision ENT Denies dysphagia, Denies vertigo, Denies dizziness, Denies headache(s), Denies hearing loss and Denies tinnitus Card Denies chest pain, Denies chest pain with activity, Denies syncope, Denies irregular heart rhythm and Denies dyspnea Resp Denies chest congestion, Denies cough, Denies hemoptysis, Denies dyspnea and Denies wheezing GI Denies abdominal pain, Denies melena, Denies hematochezia, Denies coffee ground emesis, Denies dysphagia, Denies diarrhea, Denies nausea and Denies vomiting Denies difficulty urinating, Denies dysuria, Denies urinary frequency, Denies urinary hesitancy and Denies urinary urgency Musc Denies arthralgias, Denies limited range of motion, Denies muscle cramps and Denies muscle weakness Skin/Breast Denies rash and Denies skin ulcer Neuro Denies Abnormal speech present, Denies confusion, Denies vertigo, Denies dizziness, Denies syncope, Denies headache(s), Denies memory loss and Denies seizure-like activity Psych Denies anxiety, Denies confusion, Denies depression, Denies memory loss, Denies panic attacks and Denies paranoia Endo Denies excessive sweating, Denies fatigue, Denies flushing, Denies polydipsia and Denies polyuria Aller/Immun Denies wheezing Physical exam (Primary Care) Vital Signs: Last Vital Signs Pulse 70 05/03/23 13:30 BP 132/80 05/03/23 13:30 Pulse Ox 97 05/03/23 13:30 Oxygen Delivery Method Room Air 05/03/23 13:30 BMI result Body Mass Index 30.1 BMI Assessment/Plan discussion: High Tobacco/Smoking Status: Tobacco use Status Tobacco use date assessed 05/03/23 05/03/23 13:37 Patient Tobacco Use Status Never used Tobacco 05/03/23 13:33 e-Cigarette/Vaping Use Never Used 05/03/23 13:33 PHQ-9: PHQ-9 Score PHQ-9: Total score 0 05/03/23 13:37 Depression Screening Interpretation: Negative Thrive Assessment: Date of Thrive Assessment Date Thrive assessed 05/03/23 05/03/23 13:37 Currently or been in a relationship where the following occur: no concerns reported Const Other: Obese General: cooperative, comfortable, no acute distress, alert and awake; No confusion Orientation/consciousness: oriented to person, oriented to place, patient oriented x3 and No confusion HENMT Head: Yes normocephalic Ears: external ears normal and TM's normal bilaterally Face and sinus: No sinus tenderness Mouth: Normal oral and palatal mucosa present and tongue normal Teeth and gingiva: dentition normal and gingiva normal Throat: Yes posterior oropharynx normal, Yes tonsils normal and Yes uvula midline Eyes Conjunctivae: conjunctivae normal Sclerae: sclerae normal Pupils: Equal, round and reactive pupils present EOM: EOMs intact bilaterally Direct Ophthalmoscopy: No no photophobia Neck Neck: Yes no lymphadenopathy, No tender and Yes no JVD Thyroid: Thyroid normal Carotids: no bruits Chest Chest palpation & inspection: no tenderness Resp Effort & Inspection: normal respiratory effort, no audible wheezes, not labored and no stridor Auscultation: no crackles, no rales, no rhonchi and no wheezes Cardio Jugular venous distension: no JVD Rate: regular rate, not bradycardic and not tachycardic Rhythm: regular rhythm Bruits: no carotid bruits Peripheral pulses: Peripheral pulses 2+ throughout GI Inspection: Yes normal to inspection, No abdominal wall ecchymosis and No visible herniation Palpation (GI): Soft to palpation, nontender, no guarding, not rigid and No hepatosplenomegaly present Auscultation: normoactive bowel sounds General: Yes no CVA tenderness Back/Spine/Pelvis Back: no CVA tenderness and No back tenderness Cervical Spine: cervical ROM normal Thoracic/Lumbar Spine: thoracic and lumbar spine normal to inspection, straight leg raise negative bilaterally, No thoraco-lumbar ROM limited and No lumbar spinal tenderness Skin Lesions: no lesions Rashes: no rashes Wounds: no wounds Neuro General: oriented to person, oriented to place, patient oriented x3, CN's II-XI intact bilaterally and No confusion Cranial nerves: Yes Equal, round and reactive pupils present and Yes Normal accommodation reflex present Cognition (Neuro): normal cognition Speech: No Abnormal speech present Gait exam (Neuro): Normal gait present Motor exam (neuro): 5/5 motor strength present throughout Extrem Right upper extremity: full ROM; no cyanosis Left upper extremity: full ROM; no cyanosis Right lower extremity: no edema Left lower extremity: no edema Psych Appearance: grossly normal Mental Status: mental status grossly normal Affect: normal affect Attitude: cooperative Thought process: Normal thought process present Assessment and Plan Assessment & Plan (1) Annual physical exam: Code(s): Z00.00 - Encounter for general adult medical examination without abnormal findings (2) Lipoma of lateral chest wall: Code(s): D17.1 - Benign lipomatous neoplasm of skin and subcutaneous tissue of trunk (3) Essential hypertension: Code(s): I10 - Essential (primary) hypertension Plan: Patient's blood pressure acceptable today in office. Will continue amlodipine 10 mg with goal blood pressure to be below 140/90 (4) Hyperlipidemia: Code(s): E78.5 - Hyperlipidemia, unspecified Qualifiers: Hyperlipidemia type: mixed hyperlipidemia Qualified Code(s): E78.2 - Mixed hyperlipidemia Plan: Patient's most recent lipid panel showing excellent control his total cholesterol and LDL. Will continue atorvastatin 20 mg at this time. Goal LDL is to remain below 130. (5) Impaired glucose metabolism: Comment: On metformin Code(s): R73.09 - Other abnormal glucose Plan: Continues on metformin 500 ER. Most recent fasting blood sugar slightly elevated in A1c at 6.0. He does report some sedentary lifestyle and would like to work on being more physically active . (6) Obstructive sleep apnea: Code(s): G47.33 - Obstructive sleep apnea (adult) (pediatric) Plan: Continues to use nightly CPAP (7) Obese: Code(s): E66.9 - Obesity, unspecified Qualifiers: Obesity type: due to excess calories Obesity classification: adult class 1 (BMI 30 - 34.9) Serious obesity comorbidity presence: without serious comorbidity Body mass index: BMI 30.0-30.9 Qualified Code(s): E66.09 - Other obesity due to excess calories; Z68.30 - Body mass index [BMI] 30.0-30.9, adult Plan: Patient does understand his BMI is over 30 will work on being more physically active and adapting to better eating habits to reduce his weight Orders: Orders Hemoglobin A1c Today R73.09 - Other abnormal glucose Comprehensive [place]. Panel Fast Today R73.09 - Other abnormal glucose Lipid Panel Today E78.2 - Mixed hyperlipidemia Coding Level of Care Code Est Pt Prev Care 40-64y(52702) Diagnoses Annual physical exam Z00.00 Lipoma of lateral chest wall D17.1 Essential hypertension I10 Mixed hyperlipidemia E78.2 Hyperlipidemia type: mixed hyperlipidemia Impaired glucose metabolism R73.09 Obstructive sleep apnea G47.33 Class 1 obesity due to excess calories without serious comorbidity with body mass index (BMI) of 30.0 to 30.9 in adult E66.09; Z68.30 Obesity type: due to excess calories Obesity classification: adult class 1 (BMI 30 - 34.9) Serious obesity comorbidity presence: without serious comorbidity Body mass index: BMI 30.0-30.9 Additional Codes PAIGE-7 Assessment Billing - PAIGE-7 Assessment Tool: PAIGE-7 Assessment [id number] ([id number])
== END 2023-05-03 16:21 | disposition home or self-care (01) ==
PROVIDERS: Visit Provider Physician Assistant
DX: Z00.00 Encounter for general adult medical examination without abnormal findings (principal); D17.1 Benign lipomatous neoplasm of skin and subcutaneous tissue of trunk; I10 Essential (primary) hypertension; E78.2 Mixed hyperlipidemia; R73.09 Other abnormal glucose; G47.33 Obstructive sleep apnea (adult) (pediatric); E66.09 Other obesity due to excess calories; Z68.30 Body mass index [BMI] 30.0-30.9, adult
CPT/HCPCS: 99396

== ENCOUNTER 2023-06-03 10:54 | Outpatient (AMB) | payer MEDICARE, SELFPAY ==
--- NOTE | 2023-06-03 10:57 | A.OFFVIS_ITS ---
Intake Vital Signs 3 06/03/23 11:04 Height 5 ft 7 in Weight 195 lb 6 oz BMI 30.6 BP 181/90 H Blood Pressure Location Lt brachial Position Sitting Intake Visit Reasons: lipoma of the trunk Intake Note: Patient is seen in office for evaluation and treatment of a lipoma of the trunk. Pt c/o: right breast near axilla lump, onset 2-3 yrs, has increase in size, seen a supervisor paper products in the past, was going to have it removed back then, denies pain, discharge, redness or swelling Resource Manager Required: No Allergies valsartan Adverse Reaction (Intermediate, Verified 05/03/23 13:37) throat issue Medication List - Last Reconciled 06/03/23 by Regino Celis MD amlodipine 10 mg PO DAILY 90 days atorvastatin 20 mg PO DAILY 90 days fluticasone propionate 50 mcg/actuation (Flonase Allergy Relief) 1 spray intranasal DAILY metformin ER 500 mg PO DAILY HPI HPI Comments 2 History of Present Illness0 Details 63-year-old male patient presenting with a soft tissue mass in the right axilla. This is been present for approximately 1.5 years and has gradually increased in size. He denies any specific symptoms associated with this including pain, redness or discharge. He denies any previous surgery in this location. He is requesting excision of this soft tissue mass. [facility] Medical History Allergic rhinitis Family history of colon cancer Essential hypertension Neck pain Arthritis Elevated cholesterol Hydrocele Tubular adenoma of colon Impaired glucose metabolism Surgical History History of colonoscopy History of tonsillectomy H/O arthroscopic knee surgery No pertinent past surgical history Family History Father No problems noted. Mother Hypertension Brother In good health Colon cancer Son In good health Mental health disorder Substance use disorder Daughter In good health Social History Household Members: Significant Other Housing: House Alcohol intake: current Alcohol intake frequency: a few times a week Alcohol type: hard liquor Patient Tobacco Use Status: Never used Tobacco e-Cigarette/Vaping Use: Never Used Second Hand Smoke Exposure: No service: No Current occupational status: disabled Cognitive needs: No Hearing needs: No Vision needs: Yes (glasses) Review of Systems Const All systems reviewed & are unremarkable except as noted in HPI and below Physical Exam Const General: cooperative and no acute distress Nutritional Appearance: well nourished Orientation/consciousness: patient oriented x3 Limitations: no limitations HEENT Head: Yes normocephalic and Yes atraumatic Ears: hearing grossly normal bilaterally Chest Other: 8 cm round, mobile, soft tissue mass in the anterior and inferior portion of the axilla, nontender to palpation, most suggestive of a lipoma. Chest/axillae images: 2 1. Site of soft tissue mass right axilla Resp Effort & Inspection: normal respiratory effort, no audible wheezes, no cough and no respiratory distress Cardio Jugular venous distension: no JVD GI Inspection: Yes normal to inspection Skin Other: Warm, dry, no rash Neuro General: patient oriented x3 Extrem General: Yes no clubbing, cyanosis or edema Assessment & Plan Assessment & Plan (1) Lipoma of lateral chest wall: Code(s): D17.1 - Benign lipomatous neoplasm of skin and subcutaneous tissue of trunk Plan 63-year-old male patient presenting with a soft tissue mass of the right axilla most consistent with a lipoma. He is requesting excision as the lesion is increasing in size. I recommended an excision under anesthesia, short-stay surgery. After discussion of the procedure, risks, and alternatives, he consents to excision of the right axillary lipoma as a short-stay surgery. Coding Level of Care Code New Pt Level 4 (96051) Diagnoses Lipoma of lateral chest wall D17.1
[2023-06-03 11:04] VITALS: BP 181/90; BMI 30.6
== END 2023-06-03 11:09 | disposition home or self-care (01) ==
PROVIDERS: PCP Physician Assistant; Visit Provider Surgery
DX: D17.1 Benign lipomatous neoplasm of skin and subcutaneous tissue of trunk (principal)
CPT/HCPCS: 99204

== ENCOUNTER → 2023-06-03 10:54 | Outpatient (BNVA) | payer MEDICARE, SELFPAY | PROVIDERS: PCP Physician Assistant; Visit Provider Surgery | DX: D17.1 Benign lipomatous neoplasm of skin and subcutaneous tissue of trunk (principal) | CPT/HCPCS: 99202 ==

== ENCOUNTER 2023-07-06 05:43 | Day surgery (SDC) | payer MEDICARE, SELFPAY ==
[2023-07-04 08:21] VITALS: BMI 30.5
--- NOTE | 2023-07-04 13:36 | HO.ANESPROP2 ---
Documented by User: Jaja Velasco NP 07/04/23 13:37 HPI - Anesthesia Eval Consult details Narrative: 63yo M for Right Excision Lipoma Axilla PMFSH Active Problems Active Problems: All Active Problems (Updated 05/03/23 @ 13:54 by Kalpesh Browning PA-C) Obese (Acute) Lipoma of lateral chest wall (Acute) Obstructive sleep apnea (Acute) Annual physical exam (Acute) Essential hypertension (Acute) Left hand paresthesia (Acute) Annual physical exam (Acute) Tubular adenoma of colon (Acute) Impaired glucose metabolism (Acute) Hyperlipidemia (Acute) Encounter for screening colonoscopy (Acute) Past Medical History Medical History Essential hypertension Allergic rhinitis Neck pain Arthritis Elevated cholesterol Hydrocele Tubular adenoma of colon Family history of colon cancer Impaired glucose metabolism Family History Family History Father No problems noted. Mother Hypertension Brother In good health Colon cancer Son In good health Mental health disorder Substance use disorder Daughter In good health Surgical History Surgical History (Updated 07/06/23 @ 06:11 by Christina Garcia) S/P repair of hydrocele History of colonoscopy History of tonsillectomy H/O arthroscopic knee surgery Social History Social History Household Members: Significant Other Housing: House Alcohol intake: current Alcohol intake frequency: a few times a month Alcohol type: hard liquor Patient Tobacco Use Status: Former Tobacco user Tobacco use type: Cigarette Years Smoked: 12 e-Cigarette/Vaping Use: Never Used Second Hand Smoke Exposure: No service: No Current occupational status: disabled Cognitive needs: No Hearing needs: No Vision needs: Yes (glasses) Meds Allergies Allergy/AdvReac Type Severity Reaction Status Date / Time valsartan AdvReac Intermediate throat Verified 07/06/23 06:09 issue Home Medications Medication Instructions Recorded Confirmed Last Taken Type ibuprofen 200 mg PO DAILY PRN Pain 07/06/23 07/06/23 07/05/23 History 600 mg Exam Height,Weight and Vital Signs: Height 5 ft 7 in Weight 88.451 kg Assessment and Plan Assessment Anesthesia Assessment: Chart Reviewed Documented by User: Chavo Sigala MD 07/06/23 07:27 [facility] Past Medical History Medical History Essential hypertension Allergic rhinitis Neck pain Arthritis Elevated cholesterol Hydrocele Tubular adenoma of colon Family history of colon cancer Impaired glucose metabolism Family History Family History Father No problems noted. Mother Hypertension Brother In good health Colon cancer Son In good health Mental health disorder Substance use disorder Daughter In good health Family history of problems with anesthesia: No Surgical History Surgical History (Updated 07/06/23 @ 06:11 by Christina Garcia) S/P repair of hydrocele History of colonoscopy History of tonsillectomy H/O arthroscopic knee surgery History of Problems with Anesthesia: No Social History Social History Household Members: Significant Other Housing: House Alcohol intake: current Alcohol intake frequency: a few times a month Alcohol type: hard liquor Patient Tobacco Use Status: Former Tobacco user Tobacco use type: Cigarette Years Smoked: 12 e-Cigarette/Vaping Use: Never Used Second Hand Smoke Exposure: No service: No Current occupational status: disabled Cognitive needs: No Hearing needs: No Vision needs: Yes (glasses) Meds Allergies Allergy/AdvReac Type Severity Reaction Status Date / Time valsartan AdvReac Intermediate throat Verified 07/06/23 06:09 issue Home Medications Medication Instructions Recorded Confirmed Last Taken Type ibuprofen 200 mg PO DAILY PRN Pain 07/06/23 07/06/23 07/05/23 History 600 mg Exam Airway Mallampati Class: II TM Dist: >3cm Neck ROM: Full Heart: ok Lungs: ok Assessment and Plan Assessment Anesthesia Assessment: Anesthesia Plan Discussed Final Anesthetic Review Family History of Problems with Anesthesia: No History of Problems with Anesthesia: No NPO: Yes ASA Class: III Final Preanesthetic Review: No Changes in Pt Med Stat, Meds/Allgs Chart Reviewed, Consent Obtained/Reviewed and Anes Risks/Benef Reviewed Patient Risk: Intermediate Procedure Risk: Low Anesthetic Plan Anesthetic Plan: GA and Agree w/ Assess. and Plan Disposition: Standard PACU
[2023-07-06] VITALS (7 sets, daily range): BP systolic 103–128; BP diastolic 61–73; PULSE 57–64; RESP 14–18; TEMP 36.1–37.1; O2SAT 93–97; BMI 31.1
[2023-07-06 06:24] LABS: Glucose, Whole Blood 117 mg/dL (60-115)
[2023-07-06] MEDS: Lactated Ringers 1,000 ML 100 ML IVCONT (06:53)
--- NOTE | 2023-07-06 07:24 | MHC.SHP ---
Pre-Procedural Eval Section A - 24 Hr Update-Section A only Date of Service: 07/06/23 The patient is an INPATIENT: No Changes since office visit: Yes Patient answered all questions; No Cold of Flu in the past 2 weeks, No New Medical Problems and No Changes in Medication The patient has been examined within 24 hours of the surgical procedure. The History & Physical has been completed within 30 days and I have reviewed it.: No Section B - Complete if H&P > 30 days Chief Complaint: Benign lipomatous neoplasm of skin and subcutaneou Details of Present Illness: No change from prior visit Relevant Family History (Specify if Yes): No Relevant Social History: None Present Medications: see Short Stay Collaborative assessment Medical History: No relevant PMH History of Previous Operations: No relevant previous surgery Allergies: Allergies Allergy/AdvReac Type Severity Reaction Status Date / Time valsartan AdvReac Intermediate throat Verified 07/06/23 06:09 issue Review of Systems Sugical H&P ROS: Negative: Constitution, Cardiovascular, Respiratory, Neurological, Psychiatric, Hem-Onc, Allergic/Immunologic, Gastrointestinal, Genitourinary, Musculoskeletal, Integumentary, Endocrine and Eyes/Ears/Nose/Throat Exam Surgical H&P Exam: Normal: HEENT, Normal: Heart, Normal: Lungs, Normal: Extremities, Normal: Abdomen, Normal: Skin and Normal: Neurological Plan Diagnosis/Plan: Unchanged I have reviewed the history and physical and performed a pertinent physical examination on my patient. No changes have occurred unless specified. Time Spent With Patient Time: Total time managing care of this patient today ____ minutes.
--- NOTE | 2023-07-06 07:28 | W.PM.OPN ---
Operative Note Operative Note Date of Service: 07/06/23 Narrative: Preoperative diagnosis: Lipoma right axilla Postoperative diagnosis: Same Procedure: Excision lipoma right axilla Surgeon: Regino Celis MD Group Underwriter: Jayshree Cancino PA-C, LYSSA Avendano Anesthesia: General LMA Indications for procedure: 63-year-old male patient presenting with an enlarging lipoma of the right axilla causing discomfort. Operative findings: 10 cm lipoma right axilla Specimen: Lipoma axilla Estimated blood loss: 2 mL Complications: None Procedure details: Patient was brought to the OR placed in a supine position. After administering general anesthesia the patient's right axilla was prepped with ChloraPrep and draped in a sterile fashion. A surgical time-out was called the consent confirmed. Patient received preoperative antibiotics and Venodyne boots were in place. Local anesthesia was then infiltrated in a curvilinear fashion over the lipoma. Incision was then made with a scalpel and carried out through subcutaneous tissue up to the lipoma. This was then dissected free from the surrounding subcutaneous tissue using electrocautery. Hemostasis was assured using electrocautery and free ties of 3-0 Polysorb. The specimen was removed and sent to pathology for further examination. Wounds were irrigated with saline solution and suctioned dry. Deep subcutaneous tissue was then reapproximated using interrupted 3-0 Polysorb sutures. Dermis was reapproximated using interrupted 3-0 Polysorb sutures. Skin was then closed using a running subcuticular 4-0 Polysorb suture. Steri-Strips, 4 x 4 gauze and Tegaderm were then applied. The patient tolerated the procedure well. Sponge, instrument, needle counts reported as correct. The patient was transferred to PACU in stable condition.
== END 2023-07-06 09:56 | disposition home or self-care (01) ==
PROVIDERS: PCP Physician Assistant; Visit Provider Surgery
PROC: (CPT 24071; principal; 2023-07-06 07:30)
DX: D17.21 Benign lipomatous neoplasm of skin and subcutaneous tissue of right arm (principal); I10 Essential (primary) hypertension; E78.00 Pure hypercholesterolemia, unspecified; R73.02 Impaired glucose tolerance (oral); J30.9 Allergic rhinitis, unspecified; Z79.51 Long term (current) use of inhaled steroids; Z79.84 Long term (current) use of oral hypoglycemic drugs; Z79.899 Other long term (current) drug therapy; Z88.8 Allergy status to other drugs, medicaments and biological substances; Z87.891 Personal history of nicotine dependence
CPT/HCPCS: 24071; 82947; 88304; J0690; J1885; J2704; J3010

== ENCOUNTER → 2023-07-06 05:43 | Outpatient (BNV) | payer MEDICARE, SELFPAY | PROVIDERS: PCP Physician Assistant; Visit Provider Surgery | DX: D17.1 Benign lipomatous neoplasm of skin and subcutaneous tissue of trunk (principal) | CPT/HCPCS: 21931 ==

== ENCOUNTER 2023-07-19 10:21 | Outpatient (AMB) | payer MEDICARE, SELFPAY ==
--- NOTE | 2023-07-19 10:27 | MHC.OFFVIS ---
Intake Intake Visit Reasons: post exc lipoma rt axilla (filled with fluid) Kenneth Intake Note: Patient scheduled today as an urgent appointment. WLE lipoma on Rt axilla with Dr. Celis on 07-06-23. Patient c/o: fluid build up along incision, pain on muscles that are around. 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 He presents here with fluid collection. [facility] Medical History Essential hypertension Allergic rhinitis Neck pain Arthritis Elevated cholesterol Hydrocele Tubular adenoma of colon Family history of colon cancer Impaired glucose metabolism Surgical History S/P repair of hydrocele History of colonoscopy History of tonsillectomy H/O arthroscopic knee surgery Family History Father No problems noted. Mother Hypertension Brother In good health Colon cancer Son In good health Mental health disorder Substance use disorder Daughter In good health Social History Household Members: Significant Other Housing: House Alcohol intake: current Alcohol intake frequency: a few times a month Alcohol type: hard liquor Patient Tobacco Use Status: Former Tobacco user Tobacco use type: Cigarette Years Smoked: 12 e-Cigarette/Vaping Use: Never Used Second Hand Smoke Exposure: No service: No Current occupational status: disabled Cognitive needs: No Hearing needs: No Vision needs: Yes (glasses) Physical Exam Chest Other: Incision clean dry and intact. Moderately sized seroma. Under sterile technique, patient had a proximally 40 cc of serous fluid drained. Dressing applied. Well tolerated. Office Procedures FNA Biopsy FNA Biopsy Details: Risks, benefits, alternatives of aspiration seroma reviewed with the patient included but not limited to bleeding, infection, recurrence, numbness, pain, scarring the patient wished to proceed. All questions answered. After appropriate positioning, patient underwent Betadine prep and aspiration proximally 40 cc of serous/seroma from right sub axillary incision site. Well tolerated. Dressing applied. FNA Biopsy 1: [id number] Biopsy, 1st lesion w/o image All charges added?: Procedure code (CPT) selection complete Assessment & Plan Assessment & Plan (1) Seroma due to trauma: Code(s): T79.2XXA - Traumatic secondary and recurrent hemorrhage and seroma, initial encounter Plan Patient has been given local instructions including avoiding strenuous activities next few weeks time and will follow-up with Dr. Celis as scheduled or p.r.n.. All questions answered. Orders: Orders Biopsy - Fine needle aspiration Today T79.2XXA - Traumatic secondary and recurrent hemorrhage and seroma, initial encounter Coding Level of Care Code New Pt Level 4 (02025) Diagnoses Seroma due to trauma T79.2XXA CPT Codes FNA Biopsy - FNA Biopsy 1: [id number] Biopsy, 1st lesion w/o image ([id number])
== END 2023-07-19 10:47 | disposition home or self-care (01) ==
PROVIDERS: PCP Physician Assistant; Visit Provider Surgery
DX: T79.2XXA Traumatic secondary and recurrent hemorrhage and seroma, initial encounter (principal)
CPT/HCPCS: 99024

== ENCOUNTER → 2023-07-19 10:21 | Outpatient (BNVA) | payer MEDICARE, SELFPAY | PROVIDERS: PCP Physician Assistant; Visit Provider Surgery | DX: T79.2XXD Traumatic secondary and recurrent hemorrhage and seroma, subsequent encounter (principal) | CPT/HCPCS: 99212 ==

== ENCOUNTER 2023-07-26 09:56 | Outpatient (AMB) | payer MEDICARE, SELFPAY ==
--- NOTE | 2023-07-26 10:05 | A.OFFVIS_ITS ---
Vital Signs 3 07/26/23 10:14 Height 5 ft 7 in Weight 193 lb BMI 30.2 BP 157/83 H Blood Pressure Location Lt brachial Position Sitting Pulse 74 Intake Visit Reasons: S/P excision lipoma Rt axilla Intake Note: Patient is seen in office for post op assessment post excision of lipoma of the right axilla. Pt c/o: denies any concerns Op:07/06/23 Hr Generalist Required: No Accompanied by: Self / Same As Patient Allergies valsartan Adverse Reaction (Intermediate, Verified 07/26/23 10:15) throat issue Medication List - Last Reconciled 07/26/23 by Regino Celis MD amlodipine 10 mg PO DAILY 90 days atorvastatin 20 mg PO DAILY 90 days fluticasone propionate 50 mcg/actuation (Flonase Allergy Relief) 1 spray intranasal DAILY [ibuprofen 200 mg PO DAILY PRN] metformin ER 500 mg PO DAILY oxycodone 5 mg PO Q6H PRN HPI Comments Details: Patient returns following excision of a right axillary lipoma. Postoperatively he developed a seroma which was drained. He reports no further return of the seroma and generally feels well. He denies any significant pain at the site of surgery. [facility] Medical History Essential hypertension Allergic rhinitis Neck pain Arthritis Elevated cholesterol Hydrocele Tubular adenoma of colon Family history of colon cancer Impaired glucose metabolism Surgical History S/P excision of lipoma (07/06/23) S/P repair of hydrocele History of colonoscopy History of tonsillectomy H/O arthroscopic knee surgery Family History Father No problems noted. Mother Hypertension Brother In good health Colon cancer Son In good health Mental health disorder Substance use disorder Daughter In good health Social History Household Members: Significant Other Housing: House Alcohol intake: current Alcohol intake frequency: a few times a month Alcohol type: hard liquor Patient Tobacco Use Status: Former Tobacco user Tobacco use type: Cigarette Years Smoked: 12 e-Cigarette/Vaping Use: Never Used Second Hand Smoke Exposure: No service: No Current occupational status: disabled Cognitive needs: No Hearing needs: No Vision needs: Yes (glasses) Physical Exam Const General: comfortable Nutritional Appearance: well nourished Orientation/consciousness: patient oriented x3 Chest Other: Incision in the right axilla is clean, dry, and intact. No palpable seroma is appreciated. Chest/axillae images: 2 1. Well-healed incision right axilla with no palpable seroma. Neuro General: patient oriented x3 Assessment & Plan Assessment & Plan (1) Lipoma of lateral chest wall: Code(s): D17.1 - Benign lipomatous neoplasm of skin and subcutaneous tissue of trunk Category: Medical Plan Patient returns following excision of a lipoma of the right axilla. His wounds are clean, dry, and intact without redness or discharge. He should follow up as needed.
[2023-07-26 10:14] VITALS: BP 157/83; PULSE 74; BMI 30.2
== END 2023-07-26 10:46 | disposition home or self-care (01) ==
PROVIDERS: PCP Physician Assistant; Visit Provider Surgery
DX: D17.1 Benign lipomatous neoplasm of skin and subcutaneous tissue of trunk (principal)
CPT/HCPCS: 99024

== ENCOUNTER → 2023-07-26 09:56 | Outpatient (BNVA) | payer MEDICARE, SELFPAY | PROVIDERS: PCP Physician Assistant; Visit Provider Surgery | DX: D17.1 Benign lipomatous neoplasm of skin and subcutaneous tissue of trunk (principal) | CPT/HCPCS: 99212 ==

== ENCOUNTER 2023-10-12 09:16 | Outpatient (AMB) | payer MEDICARE, SELFPAY ==
[2023-10-12 09:19] VITALS: BP 132/74; PULSE 70; TEMP 36.6; O2SAT 97; BMI 30.1
--- NOTE | 2023-10-12 09:19 | AM.OFFWIN_ITS ---
Intake Vital Signs 10/12/23 09:19 Height 5 ft 7 in Weight 192 lb 6 oz BMI 30.1 BP 132/74 Blood Pressure Location Rt brachial Position Sitting Pulse 70 Pulse Source Pulse Oximeter Temp 97.8 F Temp Source Oral Pulse Oximetry (%) 97 Oxygen Delivery Method Room Air Intake Visit Reasons: EP 1wk ago lifted strained back shooting pains Intake Note: pt is here for strain on back, shooting pains for 1 week ago Patient Tobacco Use Status: Former Tobacco user Allergies valsartan Adverse Reaction (Intermediate, Verified 10/12/23 09:20) throat issue Do you need a note to return to daycare/school/sports/work: No HPI HPI Comments History of Present Illness Details 63 y/o male patient who presents to walk in clinic with c/o Lower Back pain x 1 week. Pt was lifting Boxes in his Garage and twisted his back. He has been taking Acetaminophen and Ibuprofen with no relief. He has also been applying Ice/Hot with no relief. Denies Bladder or bowel symptoms. [facility] Medical History Essential hypertension Allergic rhinitis Neck pain Arthritis Elevated cholesterol Hydrocele Tubular adenoma of colon Family history of colon cancer Impaired glucose metabolism Surgical History S/P excision of lipoma (07/06/23) S/P repair of hydrocele History of colonoscopy History of tonsillectomy H/O arthroscopic knee surgery Family History Father No problems noted. Mother Hypertension Brother In good health Colon cancer Son In good health Mental health disorder Substance use disorder Daughter In good health Social History Household Members: Significant Other Housing: House Alcohol intake: current Alcohol intake frequency: a few times a month Alcohol type: hard liquor Patient Tobacco Use Status: Former Tobacco user Tobacco use type: Cigarette Years Smoked: 12 e-Cigarette/Vaping Use: Never Used Second Hand Smoke Exposure: No service: No Current occupational status: disabled Cognitive needs: No Hearing needs: No Vision needs: Yes (glasses) Review of Systems Const All systems reviewed & are unremarkable except as noted in HPI and below Physical Exam Vital Signs: Last Vital Signs Temp 97.8 F 10/12/23 09:19 Pulse 70 10/12/23 09:19 BP 132/74 10/12/23 09:19 Pulse Ox 97 10/12/23 09:19 Oxygen Delivery Method Room Air 10/12/23 09:19 BMI result Body Mass Index 30.1 Const General: comfortable and no acute distress Orientation/consciousness: patient oriented x3 Back/Spine/Pelvis Back: back tenderness Thoracic/Lumbar Spine: thoraco-lumbar ROM normal, thoraco-lumbar spasm and thoracic spinal tenderness Neuro General: patient oriented x3, gait normal and moves all extremities Psych Speech and movement: Normal speech and movement present Assessment & Plan Assessment & Plan (1) Lower thoracic back pain: Code(s): M54.6 - Pain in thoracic spine Plan: Ordered PT for patient Ice/Hot Acetaminophen for pain relief. Orders: Orders PT Evaluation and Treatment Today M54.6 - Pain in thoracic spine Medications: New meloxicam 7.5 mg PO DAILY 30 tabs 0RF M54.6 - Pain in thoracic spine acetaminophen 1,000 mg (2 x 500 mg) PO Q6H PRN 30 caps 0RF pain M54.6 - Pain in thoracic spine prednisone 50 mg PO DAILY 5 days 5 tabs 0RF M54.6 - Pain in thoracic spine cyclobenzaprine 10 mg PO BEDTIME 10 tabs 0RF M54.6 - Pain in thoracic spine Coding Level of Care Code Est Pt Level 3 (14667) Diagnoses Lower thoracic back pain M54.6 Time Spent (min) 15
== END 2023-10-12 10:29 | disposition home or self-care (01) ==
PROVIDERS: PCP Physician Assistant; Visit Provider Nurse Practitioner Family
DX: M54.6 Pain in thoracic spine (principal)
CPT/HCPCS: 99213

== ENCOUNTER 2023-10-24 09:25 | Outpatient (REF) | payer MEDICARE, SELFPAY ==
[2023-10-24 10:50] LABS: Estimated Average Glucose 126 mg/dL
[2023-10-24 11:16] LABS: Alanine Aminotransferase 19 U/L (0-40); Albumin Level 4.1 g/dL (3.5-5.0); Alkaline Phosphatase 40 U/L (39-117); Anion Gap 12 (12-20); Aspartate Amino Transferase 14 U/L (5-37); Blood Urea Nitrogen 27 mg/dL (9-16); Calcium 9.5 mg/dL (8.4-10.2); Carbon Dioxide 28 mmol/L (22-29); Chloride 104 mmol/L (96-108); Cholesterol 211 mg/dL (<200); Estimated Glomerular Filt Rate > 60; Glucose Fasting 112 mg/dL (60-99); HDL Cholesterol 53 mg/dL (>40); LDL Cholesterol Calculated 137 mg/dL (<100); Potassium 4.3 mmol/L (3.3-5.1); Sodium 140 mmol/L (135-145); Total Protein 6.7 g/dL (6.5-8.0); Triglycerides 105 mg/dL (<150)
== END 2023-10-24 09:26 | disposition home or self-care (01) ==
LOC: HO.LAB 09:25
PROVIDERS: PCP Physician Assistant; Visit Provider Physician Assistant
DX: R73.09 Other abnormal glucose (principal); I10 Essential (primary) hypertension; E78.2 Mixed hyperlipidemia
CPT/HCPCS: 36415; 80053; 80061; 83036

== ENCOUNTER 2023-11-01 13:53 | Outpatient (AMB) | payer MEDICARE, SELFPAY ==
--- NOTE | 2023-11-01 13:57 | A.OFFPC_ITS ---
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 Accompanied by: Self / Same As Patient Allergies valsartan Adverse Reaction (Intermediate, Verified 11/01/23 14:07) throat issue Medication List - Last Reconciled 11/01/23 by Kalpesh Browning PA-C acetaminophen 1,000 mg (2 x 500 mg) PO Q6H PRN amlodipine 10 mg PO DAILY 90 days atorvastatin 20 mg PO DAILY 90 days cyclobenzaprine 10 mg PO BEDTIME fluticasone propionate 50 mcg/actuation (Flonase Allergy Relief) 1 spray intranasal DAILY hydrochlorothiazide 12.5 mg PO DAILY 30 days [ibuprofen 200 mg PO DAILY PRN] meloxicam 7.5 mg PO DAILY metformin ER 500 mg PO DAILY Tobacco use date assessed: 05/03/23 Fall risk assessment: No Falls in past year Last assessed Fall Risk: 11/01/23 Dental Screening Dental Screen Date: 05/03/23 HPI 6mth f/u HPI Details Osmin is a 63-year-old male here today for six-month follow-up . ?Patient has a past medical history significant for diabetes, cervical radiculopathy hyperlipidemia, depression. /. Hypertension: Blood pressure today in office slightly elevated. He reports that home blood pressures have been stable 120s to 130 systolic. Continues on amlodipine 10 mg .. Hyperlipidemia: Continues on statin therapy, does report some muscle aches though the attributes this to a just well. Most recent lipid panel showing slightly elevated total cholesterol and LDL. He does admit to stopping his cholesterol medication recently. He does admit to some dietary indiscretion as of late ? .. ?Impaired glucose metabolism: was recent A1c at 6.0 in prediabetic range.. On metformin 500mg. Continues to decrease his carbs in his diet. He plans to be more physically active ? .. ?? ? Chronic? Cervical radiculopathy-> :? Has been on disability due to his cervical spine disc disease. Has had physical therapy in and seen systems support specialist for injections which have been helpful. He continues to manage his pain with p.r.n. use of anti-inflammatories and Tylenol. Laboratory Tests 04/27/23 10/24/23 06:30 09:52 Creatinine 1.05 Fasting Glucose 112 H Hemoglobin A1c % 6.0 6.0 Cholesterol 152 211 H LDL Cholesterol, C alc 80 137 H [facility] Medical History Essential hypertension Allergic rhinitis Neck pain Arthritis Elevated cholesterol Hydrocele Tubular adenoma of colon Family history of colon cancer Impaired glucose metabolism Surgical History S/P excision of lipoma (07/06/23) S/P repair of hydrocele History of colonoscopy History of tonsillectomy H/O arthroscopic knee surgery Family History Father No problems noted. Mother Hypertension Brother In good health Colon cancer Son In good health Mental health disorder Substance use disorder Daughter In good health Social History Household Members: Significant Other Housing: House Alcohol intake: current Alcohol intake frequency: a few times a month Alcohol type: hard liquor Patient Tobacco Use Status: Former Tobacco user Tobacco use type: Cigarette Years Smoked: 12 e-Cigarette/Vaping Use: Never Used Second Hand Smoke Exposure: No service: No Current occupational status: disabled Cognitive needs: No Hearing needs: No Vision needs: Yes (glasses) Questionnaire Thrive Questionnaire Date Thrive assessed: 05/03/23 PAIGE-7 AMB Questionnaire PAIGE-7 Date PAIGE - 7 assessed: 05/03/23 Source: Developed by Drs. Elliot Warren, Sujey Lay, Rigo Marie and colleagues, with an educational danay from [employer]. Review of Systems Const Denies headache(s) Eyes Denies loss of vision ENT Denies vertigo, Denies dizziness, Denies headache(s) and Denies sore throat Card Denies chest pain, Denies leg edema and Denies lightheadedness Resp Denies cough, Denies hemoptysis and Denies wheezing GI Denies abdominal pain, Denies melena, Denies constipation, Denies diarrhea and Denies vomiting Denies dysuria, Denies urinary frequency and Denies urinary urgency Musc Denies arthralgias, Denies joint swelling, Denies numbness and Denies tingling Neuro Denies Abnormal speech present, Denies behavioral changes, Denies vertigo, Denies dizziness, Denies headache(s), Denies loss of vision, Denies memory loss, Denies numbness and Denies tingling Psych Denies anxiety, Denies behavioral changes, Denies depression, Denies memory loss and Denies panic attacks Wisam/Lymph Denies easy bleeding and Denies easy bruising Aller/Immun Denies wheezing Physical exam (Primary Care) Vital Signs: Last Vital Signs Pulse 88 11/01/23 13:58 BP 144/78 H 11/01/23 13:58 Pulse Ox 98 11/01/23 13:58 Oxygen Delivery Method Room Air 11/01/23 13:58 BMI result Body Mass Index 29.5 Tobacco/Smoking Status: Tobacco use Status Tobacco use date assessed 05/03/23 11/01/23 13:58 Patient Tobacco Use Status Former Tobacco user 11/01/23 13:58 Tobacco use type Cigarette 11/01/23 13:58 e-Cigarette/Vaping Use Never Used 11/01/23 13:58 Thrive Assessment: Date of Thrive Assessment Date Thrive assessed 05/03/23 11/01/23 13:58 Const General: healthy appearing, no acute distress, alert and awake Nutritional Appearance: well nourished Orientation/consciousness: oriented to person, oriented to place and oriented to time HENMT Ears: TM's normal bilaterally General nose exam: Normal nasal mucous membranes and turbinates present Eyes Conjunctivae: conjunctivae normal Sclerae: sclerae normal Pupils: Equal, round and reactive pupils present Neck Neck: Yes no lymphadenopathy and Yes no JVD Thyroid: Thyroid normal Carotids: no bruits Resp Effort & Inspection: normal respiratory effort and not tachypneic Auscultation: no crackles, no rales, no rhonchi and no wheezes Cardio Rate: regular rate Rhythm: regular rhythm Heart sounds: no murmurs and normal S1 and S2 GI Palpation (GI): Soft to palpation, nontender, no hepatomegaly and no splenomegaly Auscultation: normal bowel sounds Skin General skin exam: no rashes or lesions noted and dry skin Neuro General: oriented to person, oriented to place and oriented to time Cranial nerves: Yes Equal, round and reactive pupils present Speech: No Abnormal speech present Gait exam (Neuro): Normal gait present Motor exam (neuro): no tremor noted Extrem Right upper extremity: full ROM Left upper extremity: full ROM Right lower extremity: full ROM; no edema Left lower extremity: full ROM; no edema Psych Mental Status: mental status grossly normal Speech and movement: Normal speech and movement present Affect: normal affect Attitude: cooperative Thought process: Normal thought process present Assessment and Plan Assessment & Plan (1) Essential hypertension: Code(s): I10 - Essential (primary) hypertension Plan: Patient's blood pressure slightly elevated today in office, we did add on hydrochlorothiazide he reports his blood pressures have been better at home 120s to 130 systolic.. Will continue amlodipine 10 mg with goal blood pressure to be below 140/90 (2) Hyperlipidemia: Code(s): E78.5 - Hyperlipidemia, unspecified Qualifiers: Hyperlipidemia type: mixed hyperlipidemia Qualified Code(s): E78.2 - Mixed hyperlipidemia Plan: He reports he has stopped taking since atorvastatin for quite some time to see if he still needed the medication. Unfortunately total cholesterol and LDL did elevate. He has restarted taking cholesterol medication Goal LDL is to remain below 130. (3) Impaired glucose metabolism: Comment: On metformin Code(s): R73.09 - Other abnormal glucose Plan: Continues on metformin 500 ER. Most recent fasting blood sugar slightly elevated in A1c at 6.0. He does report some sedentary lifestyle and would like to work on being more physically active . WILL PLACE REFERRAL TO Y DIABETES PREVENTION PROGRAM (4) Obstructive sleep apnea: Code(s): G47.33 - Obstructive sleep apnea (adult) (pediatric) Plan: Continues to use nightly CPAP Orders: Orders Hemoglobin A1c Today R73.09 - Other abnormal glucose Comprehensive [place]. Panel Fast Today R73.09 - Other abnormal glucose Microalbumin, Random (w Creat) Today I10 - Essential (primary) hypertension Lipid Panel Today E78.2 - Mixed hyperlipidemia Complete Blood Count no Diff Today E78.2 - Mixed hyperlipidemia Prostate Specific Antigen Scr Today E78.2 - Mixed hyperlipidemia, Z12.5 - Encounter for screening for malignant neoplasm of prostate Patient Instructions: Goal: Blood pressure to be below 140/90, A1c to remain below 6.5, LDL to be below 130 Barriers: Adherence to physical activity and healthy eating habits Coding Level of Care Code Est Pt Level 4 (61248) Diagnoses Essential hypertension I10 Mixed hyperlipidemia E78.2 Hyperlipidemia type: mixed hyperlipidemia Impaired glucose metabolism R73.09 Obstructive sleep apnea G47.33
[2023-11-01 13:58] VITALS: BP 144/78; PULSE 88; O2SAT 98; BMI 29.5
== END 2023-11-01 14:24 | disposition home or self-care (01) ==
PROVIDERS: PCP Physician Assistant; Visit Provider Physician Assistant
DX: I10 Essential (primary) hypertension (principal); E78.2 Mixed hyperlipidemia; R73.09 Other abnormal glucose; G47.33 Obstructive sleep apnea (adult) (pediatric)
CPT/HCPCS: 99214

== ENCOUNTER 2023-12-19 09:00 | Outpatient (RCR) | payer MEDICARE, SELFPAY ==
--- NOTE | 2023-12-02 10:49 | MHC.PT.EP ---
[facility] [place] Office [place] Office [place] Office [address] Kailyn Benavides [address] [phone] F: [phone] F: [phone] F: [phone] F: [phone] Physical Therapy Plan of Care Date of Evaluation: 12/02/23 Date of Surgery: Diagnosis: PAIN IN THORACIC SPINE Assessment: 63 YO MALE REF TO PT FOR Rt MID BACK/ INFRASCAP PAIN- AGGRAV 2 MONTHS AGO WHILE REACHING AND LIFTING AT [facility]<-> SH RANGE. THE Pt IS A RETIRED ALLIED HEALTH PROFESSIONAL, HAS A H/O CERV DISC LUDIVINA, AND HE IS Rt HAND DOMINANT. OBJECTIVELY, THE Pt HAS COMPENSATORY LAT DORSI DOMINANCE W DECR POSTURE/ HYPOMOBILE MID THOR, (+) TISSUE TENDERNESS IN Rt THORACOLUMBAR PS MM, DECR CERV MOB AND SORENESS W TRUNK SB Rt AND ROTAT Lt, AND FLUCTUATING DEGREES OF PAIN Rt T7-9. FUNCTIONALLY, HE HAS BEEN LIMITING HIS PHYSICAL ACTIVITY AN DFITNESS WALKING, WORSE W LIFTING, TENDS TO COMPENSATE IN CERV AND LUMBAR REGIONS W BODY MECH. CHENTE IS A GOOD PT CANDIDATE AN DHE AGREES W PT POC, ADDRESSING THE ABOVE FINDINGS. Frequency and Duration: The patient will be seen 2 x WK x 5 WKS Short Term Goals: DECR Rt MID BACK PAIN TO 2-3/10 INITIATE HEP-> EFFICIENT PARASCP MM ACTIV W APPROP LUMBOPELVIC STAB IMPROVE TRUNK AROM/ FLEXIB Pt INDEP SELF-CORRECT POSTURE W SIMUL ADLs Coupon Collection Clerk Goals: Pt INDEP HEP AND SELF-SX MGMT STRATEGIES Pt RESUME REG ADLs/ FITNESS-GYM , YARDWORK W/O EXACERBATING WFL STRENGTH SINA POST RC Treatment Plan: Modalities to reduce pain, spasms and effusion. Manual therapy to restore motion and function. Therapeutic exercise to improve strength and flexibility. Neuromuscular re-education for posture and balance. Therapeutic activities to return to functional activities of daily living. Electronically signed by: JACE BLACKBURN, PT Please sign and return to therapist. Thank you for your referral.
--- NOTE | 2023-12-22 08:46 | MHC.PT.DC ---
[facility] [place] Office [place] Office [place] Office [address] Kailyn Benavides [address] [phone] F: [phone] F: [phone] F: [phone] F: [phone] Physical Therapy Discharge Report Diagnosis: PAIN IN THORACIC SPINE Date of Surgery: Date of Evaluation: 12/02/23 Date of Discharge: 12/22/23 Treatments to Date: 5 Cancellations to Date: 3 No Shows to Date: 0 Discharge Status: Achieved Goals Improved Function Independent with HEP Patient Elected to Stop Discharge Summary: CHENTE HAS MADE SIGNIF PROGRESS IN PT, ADDRESSING THORACIC MOBILITY AND POSTERIOR RC/ SCAP STRENGTH AND STABILITY. HE HAS A THOROUGH AND PROGRESSIVE HEP. HE PHONED THE PT DEPT AND DISCHARGED HIMSELF FROM PT HE FEELS HE MET HIS PT GOALS AT THIS TIME. A FORMAL REASSESSMENT WAS NOT PERF Pt CANC LAST APPTs. Electronically signed by: JACE BLACKBURN,PT Please sign and return to therapist. Thank you for your referral.
== END 2023-12-22 08:48 | disposition home or self-care (01) ==
LOC: HO.PT 09:00
PROVIDERS: PCP Physician Assistant; Visit Provider Nurse Practitioner Family
DX: M54.6 Pain in thoracic spine (principal)
CPT/HCPCS: 97110; 97140; 97162

== ENCOUNTER 2024-05-04 09:19 | Outpatient (REF) | payer MEDICARE, SELFPAY ==
[2024-05-04 09:40] LABS: Hematocrit 43.9 % (42.0-52.0); Mean Corpuscular HGB Conc 34.2 g/dl (31.0-36.0); Mean Corpuscular Hemoglobin 31.8 pg (27.0-33.0); Mean Platelet Volume 9.9 fL (9.4-12.4); Platelet Count 208 X10*3/uL (160-400); Red Blood Count 4.72 X10*6/uL (4.60-5.80); Red Cell Distribution Width 11.9 % (11.0-16.0); White Blood Count 6.3 X10*3/uL (4.8-10.8)
[2024-05-04 10:05] LABS: Alanine Aminotransferase 26 U/L (0-40); Albumin Level 4.2 g/dL (3.5-5.0); Alkaline Phosphatase 43 U/L (39-117); Anion Gap 11 (12-20); Aspartate Amino Transferase 22 U/L (5-37); Bilirubin Total 0.9 mg/dL (0.0-1.0); Blood Urea Nitrogen 20 mg/dL (9-16); Calcium 9.5 mg/dL (8.4-10.2); Carbon Dioxide 28 mmol/L (22-29); Chloride 108 mmol/L (96-108); Cholesterol 162 mg/dL (<200); Estimated Glomerular Filt Rate > 60; Glucose Fasting 120 mg/dL (60-99); HDL Cholesterol 53 mg/dL (>40); LDL Cholesterol Calculated 94 mg/dL (<100); Potassium 4.5 mmol/L (3.3-5.1); Sodium 142 mmol/L (135-145); Total Protein 7.1 g/dL (6.5-8.0); Triglycerides 75 mg/dL (<150)
[2024-05-04 10:33] LABS: Prostate Specific Antigen Scr 1.59 ng/mL (<0.05-4.0)
[2024-05-04 10:49] LABS: Estimated Average Glucose 126 mg/dL; Hemoglobin A1C 161.1564 umol/L; Total Hemoglobin (HGBA1C) 3815.0956 umol/L
[2024-05-04 11:11] LABS: Creatinine Urine 154.68 mg/dL; Microalbumin Urine < 5.0 mg/L
== END 2024-05-04 09:20 | disposition home or self-care (01) ==
LOC: HO.LAB 09:19
PROVIDERS: PCP Physician Assistant; Visit Provider Physician Assistant
DX: R73.09 Other abnormal glucose (principal); E78.2 Mixed hyperlipidemia; I10 Essential (primary) hypertension; Z12.5 Encounter for screening for malignant neoplasm of prostate
CPT/HCPCS: 36415; 80053; 80061; 82043; 82570; 83036; 84153; 85027

== ENCOUNTER 2024-05-07 13:28 | Outpatient (AMB) | payer MEDICARE, SELFPAY ==
--- NOTE | 2024-05-07 13:35 | MHC.PC.OV ---
Vital Signs 05/07/24 13:36 Height 5 ft 7 in Weight 193 lb 8 oz BMI 30.3 BP 142/84 H Blood Pressure Location Lt brachial Position Sitting Pulse 76 Pulse Source Pulse Oximeter Temp 97.7 F Temp Source Temporal Artery Scan Pulse Oximetry (%) 98 Intake Visit Reasons: Annual Exam Allergies valsartan Adverse Reaction (Intermediate, Verified 05/07/24 13:41) throat issue Medication List - Last Reconciled 05/07/24 by Kalpesh Browning PA-C acetaminophen 1,000 mg (2 x 500 mg) PO Q6H PRN amlodipine 10 mg PO DAILY 90 days atorvastatin 20 mg PO DAILY 90 days cyclobenzaprine 10 mg PO BEDTIME fluticasone propionate 50 mcg/actuation (Flonase Allergy Relief) 1 spray intranasal DAILY hydrochlorothiazide 12.5 mg PO DAILY 30 days [ibuprofen 200 mg PO DAILY PRN] meloxicam 7.5 mg PO DAILY metformin ER 500 mg PO DAILY Tobacco use date assessed: 05/03/23 Dental Screening Dental Screen Date: 05/03/23 HPI Annual Exam HPI Details Osmin is a 63-year-old male here today for a routine annual physical ?Patient has a past medical history significant for diabetes, cervical radiculopathy hyperlipidemia, depression. Concern-- continues to have chronic brain fog over the last several years. Has tried different treatments including controlling his obstructive sleep apnea and trying supplemental vitamins though have not been effective. /. Hypertension: Blood pressure today in office slightly elevated. He reports that home blood pressures have been stable 120s to 130 systolic. Continues on amlodipine 10 mg PLAN: Will increase his hydrochlorothiazide 25 to get better blood pressure control .. Hyperlipidemia: Continues on statin therapy, does report some muscle aches though the attributes this to a just well. Most recent lipid panel showing slightly elevated total cholesterol and LDL. He does admit to stopping his cholesterol medication recently. He does admit to some dietary indiscretion as of late ? .. ?Impaired glucose metabolism: was recent A1c at 6.0 in prediabetic range.. On metformin 500mg. Continues to decrease his carbs in his diet. He plans to be more physically active ? .. ?? ? Chronic? Cervical radiculopathy-> :? Has been on disability due to his cervical spine disc disease. Has had physical therapy in and seen senior capital markets specialist for injections which have been helpful. He continues to manage his pain with p.r.n. use of anti-inflammatories and Tylenol. Colonoscopy: Done in 2020 repeat 5 years tubular adenomatous polyp Vaccines: Up-to-date with tetanus, Unvaccinated for COVID. declines flu and shingrex. [facility] Medical History (Updated 05/07/24 @ 14:01 by Kalpesh Browning PA-C) Essential hypertension Allergic rhinitis Neck pain Arthritis Elevated cholesterol Hydrocele Tubular adenoma of colon Family history of colon cancer Impaired glucose metabolism Surgical History Seroma due to trauma S/P excision of lipoma (07/06/23) S/P repair of hydrocele History of colonoscopy History of tonsillectomy H/O arthroscopic knee surgery Family History Father No problems noted. Mother Hypertension Brother In good health Colon cancer Son In good health Mental health disorder Substance use disorder Daughter In good health Social History (Updated 05/07/24 @ 13:44 by Kalpesh Browning PA-C) Household Members: Significant Other Housing: House Alcohol intake: current Alcohol intake frequency: a few times a month Alcohol type: hard liquor Patient Tobacco Use Status: Former Tobacco user Tobacco use type: Cigarette Years Smoked: 12 e-Cigarette/Vaping Use: Never Used Second Hand Smoke Exposure: No service: No Current occupational status: disabled Cognitive needs: No Hearing needs: No Vision needs: Yes (glasses) Questionnaire PHQ-9 Over the last 2 weeks, how often have you been bothered by any of the following problems? 1. Little interest or pleasure in doing things: not at all 2. Feeling down, depressed, or hopeless: not at all 3. Trouble falling or staying asleep, or sleeping too much: not at all 4. Feeling tired or having little energy: not at all 5. Poor appetite or overeating: not at all 6. Feeling bad about yourself - or that you are a failure or have let yourself or your family down: not at all 7. Trouble concentrating on things, such as reading the newspaper or watching television: not at all 8. Moving or speaking so slowly that other people could have noticed. Or the opposite - being so fidgety or restless that you have been moving around a lot more than usual: not at all 9. Thoughts that you would be better off or of hurting yourself in some way: not at all Total score: 0 Depression Screening Interpretation: Negative Depression Screening Done: Yes 82744 - PHQ-9 Billing: Yes Source: Developed by Drs. Elliot Warren, Sujey Lay, Rigo Marie and colleagues, with an educational danay from [employer] Thrive Questionnaire Date Thrive assessed: 05/07/24 I am a: Patient What is your living situation today?: I have a steady place to live Within the past 12 months, did the food you bought not last and you didn't have the money to get more?: Never true Within the past 12 months, did you worry whether your food would run out before you got money to buy more?: Never true Do you have trouble paying for medicines?: No Do you have trouble getting transportation to medical appointments?: No Do you have trouble paying your heating and electricity bill?: No Do you have trouble taking care of your child, family member or friend?: No Do you have trouble with day-to-day activities such as bathing, preparing meals, shopping, managing finances, etc.?: No Are you currently unemployed and looking for a job?: I choose not to answer this question Are you interested in more education?: No Please select the resources that you would like help with: None Currently or been in a relationship where the following occur: No concerns reported THRIVE Score: 0 AUDIT C Alcohol Use Questionnaire (AUDIT-C) 1. How often do you have a drink containing alcohol?: 2-4 times a month 2. How many drinks containing alcohol do you have on a typical day when you are drinking?: 1 or 2 3. How often do you have six or more drinks on one occasion?: Never Total Score: 2 PAIGE-7 AMB Questionnaire PAIGE-7 Date PAIGE - 7 assessed: 05/07/24 Feeling nervous, anxious, or on edge: 0 = Not at all Not being able to stop or control worryin = Not at all Worrying too much about different things: 0 = Not at all Trouble relaxin = Not at all Being so restless that it is hard to sit still: 0 = Not at all Becoming easily annoyed or irritable: 0 = Not at all Feeling afraid as if something awful might happen: 0 = Not at all Total PAIGE-7 score (0-4 normal; 5-9 mild; 10-14 moderate; 15-21 severe): 0 Source: Developed by Drs. Elliot Warren, Sujey Lay, Rigo Marie and colleagues, with an educational daany from [employer] PAIGE-7 Assessment Billing PAIGE-7 Assessment Tool: PAIGE-7 Assessment 84290 Physical exam (Primary Care) Vital Signs: Last Vital Signs Temp 97.7 F 05/07/24 13:36 Pulse 76 05/07/24 13:36 BP 142/84 H 05/07/24 13:36 Pulse Ox 98 05/07/24 13:36 BMI result Body Mass Index 30.3 Tobacco/Smoking Status: Tobacco use Status Tobacco use date assessed 05/03/23 05/07/24 13:36 Patient Tobacco Use Status Former Tobacco user 05/07/24 13:36 Tobacco use type Cigarette 05/07/24 13:36 e-Cigarette/Vaping Use Never Used 05/07/24 13:36 PHQ-9: PHQ-9 Score PHQ-9: Total score 0 05/07/24 13:37 Depression Screening Interpretation: Negative Thrive Assessment: Date of Thrive Assessment Date Thrive assessed 05/07/24 05/07/24 13:36 Currently or been in a relationship where the following occur: No concerns reported Office Procedures Flu Questionnaire Does the patient have a severe egg allergy?: No Does the patient have severe life threatening allergies?: No Does the patient have a fever or illness today?: No Has the patient ever had Guillain-Mart Syndrome?: No Has the patient ever had any past reaction to a flu shot?: No Immunizations Fluarix Triv [id number] (PF) 45 mcg (15 mcg x 3)/0.5 mL IM syringe Performing Provider: Kalpesh Browning PA-C [place] [facility] Documented (not given) by: JD Villanueva on 05/07/24 13:40 Reason Not Given: Patient Refused Coding Level of Care Code Est Pt Prev Care 40-64y(32513) Diagnoses Annual physical exam Z00.00 Essential hypertension I10 Impaired glucose metabolism R73.09 Brain fog R41.89 Obstructive sleep apnea G47.33 Class 1 obesity E66.811 Additional Codes PAIGE-7 Assessment Billing - PAIGE-7 Assessment Tool: PAIGE-7 Assessment 10183 ([id number]) PHQ-9 - 66132 - PHQ-9 Billing: Yes ([id number]) Assessment & Plan Assessment & Plan (1) Annual physical exam: Code(s): Z00.00 - Encounter for general adult medical examination without abnormal findings Category: Medical Plan: As per HPI (2) Essential hypertension: Code(s): I10 - Essential (primary) hypertension Category: Medical Plan: Patient's blood pressure slightly elevated today in office. Has been slightly elevated other occasions. Will increase his hydrochlorothiazide to 25 mg daily. Goal blood pressures to be below 140/90 (3) Impaired glucose metabolism: Comment: On metformin Code(s): R73.09 - Other abnormal glucose Category: Medical Plan: Patient's most recent fasting blood sugar at 120 and A1c is 6.0. Will continue metformin at current dose. He will work on lifestyle and dietary modifications. (4) Brain fog: Code(s): R41.89 - Other symptoms and signs involving cognitive functions and awareness Category: Medical Plan: Has been experiencing brain fog over last several years. Has gotten MRI of his brain in the past without any intracranial pathology. Has been using supplemental vitamins though seem not to has been helpful. Will check his testosterone level. (5) Obstructive sleep apnea: Code(s): G47.33 - Obstructive sleep apnea (adult) (pediatric) Category: Medical Plan: Continues on a CPAP machine on a nightly basis with good effect on sleep. Unfortunately brain fog continues to be a problem. (6) Class 1 obesity: Code(s): E66.811 - Obesity, class 1 Category: Medical Plan: Patient does understand his BMI is over 30 will work on being more physically active and adapting to better eating habits to reduce his weight Plan Goal: A1c to remain below 6.0, blood pressure to be below 140/90 consistently Barriers: Adherence to physical activity and healthy eating habits Orders: Orders Hemoglobin A1c 6 Months R73.09 - Other abnormal glucose Influenza 5030-3272 Immunization Today Z23 - Encounter for immunization Testosterone, Free/Total Today R41.89 - Other symptoms and signs involving cognitive functions and awareness Complete Blood Count no Diff 6 Months I10 - Essential (primary) hypertension Comprehensive [facility]. Panel Fast 6 Months I10 - Essential (primary) hypertension Lipid Panel 6 Months E78.2 - Mixed hyperlipidemia Medications: New hydrochlorothiazide 25 mg PO DAILY 90 days 90 tabs 1RF I10 - Essential (primary) hypertension Discontinued hydrochlorothiazide Discontinued Reason: Doctor's Order 12.5 mg PO DAILY 30 days 30 tabs 6RF I10 - Essential (primary) hypertension
[2024-05-07 13:36] VITALS: BP 142/84; PULSE 76; TEMP 36.5; O2SAT 98; BMI 30.3
== END 2024-05-07 15:26 | disposition home or self-care (01) ==
PROVIDERS: PCP Physician Assistant; Visit Provider Physician Assistant
DX: Z00.00 Encounter for general adult medical examination without abnormal findings (principal); I10 Essential (primary) hypertension; E66.811 Obesity, class 1; Z68.30 Body mass index [BMI] 30.0-30.9, adult; R73.09 Other abnormal glucose; R41.89 Other symptoms and signs involving cognitive functions and awareness; G47.33 Obstructive sleep apnea (adult) (pediatric)

== ENCOUNTER 2024-05-07 13:28 | Outpatient (REF) | payer MEDICARE, SELFPAY ==
[2024-05-11 13:53] LABS: Testosterone, Free 43.8 pg/mL (35.0-155.0); Testosterone, Total 481 ng/dL (250-1100)
== END 2024-05-07 13:29 | disposition home or self-care (01) ==
LOC: HO.LAB 13:28
PROVIDERS: PCP Physician Assistant; Visit Provider Physician Assistant
DX: Z00.00 Encounter for general adult medical examination without abnormal findings (principal); I10 Essential (primary) hypertension; R73.09 Other abnormal glucose; R41.89 Other symptoms and signs involving cognitive functions and awareness; G47.33 Obstructive sleep apnea (adult) (pediatric); E66.811 Obesity, class 1; Z68.30 Body mass index [BMI] 30.0-30.9, adult; Z79.84 Long term (current) use of oral hypoglycemic drugs; Z79.899 Other long term (current) drug therapy; Z99.89 Dependence on other enabling machines and devices; Z28.21 Immunization not carried out because of patient refusal
CPT/HCPCS: 36415; 84402; 84403; 96127; 99396

== ENCOUNTER 2024-11-01 07:31 | Outpatient (REF) | payer MEDICARE, SELFPAY ==
--- OUTSIDE RECORDS SUMMARY | 2024-11-01 07:33 | XMS_ITS | Patient Health Record ---
Author Organization [facility] Address [address] [address] Care Team Providers Care Deputy Manager Name Role Phone Kalpesh Del Real Primary Care Provider PRISCILA Barnett [phone] Allergies Allergen (clinical drug ingredient) Drug/Non Drug Allergy documented on EMR Reaction Allergy Type Onset Date Status cetirizine Cetirizine Unknown Drug Allergy Activ e Reason For Referral No Information Medications Medication SIG (Take, Route, Frequency, Duration) Notes Start Date End Date Status metFORMIN HCl ER 500 MG 1 tablet with ev ening meal Orally Once a day Active Terbinafine HCl 250 MG 1 tablet Orally O nce a day; Duration: 30 days 12/15/2020 Active Atorvastatin Calcium 40 MG 1 tablet Oral ly Once a day Active Urea 40 % 1 application as nee ded 1gm to each foot Externally Once a day; Duration: 90 days Active Terbinafine HCl 250 MG 1 tablet Orally O nce a day; Duration: 30 days 11/25/2023 Active Problems Problem Type SNOMED Code ICD Code Onset Dates Problem Status W/U Status Risk Notes Problem Type II diabetes mellitus, well controlled (E11.9) Active confirmed Vital Signs Temperature 97.4 degrees Fahrenheit 11/25/2023 Respiratory Rate 16 /min 11/25/2023 Blood pressure diastolic 70 mm Hg 11/25/2023 Blood pressure systolic 150 mm Hg 11/25/2023 Weight 189.9 lbs 11/25/2023 Encounters Encounter Location Date Provider Diagnosis [facility] [address] [address] 11/25/2023 PRISCILA COLIN Hyperkeratosis of sole L85.9 ; Tinea pedis of both feet B35.3 and Type II diabetes mellitus, well controlled E11.9 Assessments Encounter Date Diagnosis (ICD Code) Assessment Notes Treatment Notes Treatment Clinical Notes Section Notes 11/25/2023 Tinea pedis of both feet (ICD-10 - B35.3) He has some mild improvement of both feet today. We discussed starting oral medication. Hepatic panel was ordered and patient informed they will need lab work done every month they are on the medication. Pt agreed. Reviewed the risks/side effects of Lamisil with the patient. Explained the risks of liver damage, tinnitus, metallic taste, and GI upset. Pt verbalized understanding of these risks. Lamisil 250mg PO daily for 1 month. We discussed if he has recurrence, I will send Lotrisone cream to the pharmacy for him to apply for 2 weeks. He is in agreement with this plan. 11/25/2023 Hyperkeratosis of sole (ICD-10 - L85.9) We discussed the hyperkeratosis is due to pressure and biomechanics as well as skin. He has some improvement this visit with the area cream. I recommended gel heel cups to help cushion the areas when he is standing or walking.I recommended he continues to use the urea 40% would help reduce the amount of applications needed to keep his skin healthy. He should try once weekly applications and only file between applications if necessary. 11/25/2023 Type II diabetes mellitus, well controlled (ICD-10 - E11.9) Discussed with patient regarding proper glucose control, exercise, and diet. Explained to patient proper shoe gear, and importance of daily foot checks. I reviewed neuropathy and why it occurs in diabetics. I educated the patient on proper blood sugar control and the importance of an HgBA1c of less than 7.0%. I reviewed the signs and symptoms of neuropathy with the patient. Plan Of Treatment No Information Medical (General) History Medical History History ICD Code cervical radiculopathy Arthritis elevated cholesterol hydrocele imapired glucose metabolism neck pain tubular adenoma of colon Hyperlipidemia, unspecified E78.5 Benign neoplasm of colon, unspecified D1 2.6 Elevated blood-pressure reading, without diagnosis of hypertension R03.0 Apnea, not elsewhere classified R06.81 Diabetes mellitus type 2 well controlled Surgical History Surgery Date(Month/Year) athroscopic knee surgery
[2024-11-01 07:54] LABS: Hematocrit 43.7 % (42.0-52.0); Hemoglobin 15.2 g/dl (14.0-18.0); Mean Corpuscular HGB Conc 34.8 g/dl (31.0-36.0); Mean Corpuscular Hemoglobin 32.5 pg (27.0-33.0); Mean Corpuscular Volume 93.4 fL (80.0-98.0); NRBC Abs Auto 0.000 X10*3/uL (0.0-0.012); NRBC Pct Auto 0.0 /100WBC (0.0-0.2); Platelet Count 197 X10*3/uL (160-400); Red Blood Count 4.68 X10*6/uL (4.60-5.80); White Blood Count 6.0 X10*3/uL (4.8-10.8)
[2024-11-01 08:02] LABS: Hemoglobin A1C 176.4130 umol/L; Total Hemoglobin (HGBA1C) 3948.5320 umol/L
[2024-11-01 08:30] LABS: Alanine Aminotransferase 29 U/L (0-40); Albumin Level 4.4 g/dL (3.5-5.0); Alkaline Phosphatase 48 U/L (39-117); Anion Gap 12 (12-20); Aspartate Amino Transferase 24 U/L (5-37); Blood Urea Nitrogen 22 mg/dL (9-16); Calcium 9.0 mg/dL (8.4-10.2); Carbon Dioxide 28 mmol/L (22-29); Chloride 105 mmol/L (96-108); Cholesterol 173 mg/dL (<200); Estimated Glomerular Filt Rate > 60; HDL Cholesterol 56 mg/dL (>40); Potassium 3.7 mmol/L (3.3-5.1); Sodium 141 mmol/L (135-145); Total Protein 7.0 g/dL (6.5-8.0); Triglycerides 112 mg/dL (<150)
== END 2024-11-01 07:32 | disposition home or self-care (01) ==
LOC: HO.LAB 07:31
PROVIDERS: PCP Physician Assistant; Visit Provider Physician Assistant
DX: R73.09 Other abnormal glucose (principal); E78.2 Mixed hyperlipidemia; I10 Essential (primary) hypertension
CPT/HCPCS: 36415; 80053; 80061; 83036; 85027